=== PATIENT | female | born 2005 ===

== ENCOUNTER 2024-07-16 18:10 | Inpatient (IN) ==
[2024-07-16] MEDS ORDERED: CALCIUM CARBONATE 500 MG CHEWABLE TAB PO PRN (19:02)
[2024-07-16] MEDS ORDERED: ACETAMINOPHEN 325 MG TAB PO PRN (19:02)
[2024-07-16 19:53] LABS: Basophils # (auto) 0.02 K/uL (0.00-0.20); Basophils % (auto) 0.2 %; Eosinophils # (auto) 0.06 K/uL (0.00-0.50); Eosinophils % (auto) 0.7 %; Hematocrit (blood only) 33.2 % (37.0-47.0); Immature Granulocytes # (auto) 0.03 K/uL (0.01-0.20); Immature Granulocytes % (auto) 0.4 %; Lymphocytes # (auto) 1.59 K/uL (1.20-3.40); Lymphocytes % (auto) 18.7 %; Mean Corpuscular Hemoglobin 27.4 pg (25.0-34.0); Mean Corpuscular Hgb Conc 33.1 g/dL (32.0-36.0); Mean Corpuscular Volume 82.6 fL (80.0-100.0); Mean Platelet Volume 12.1 fL (9.4-12.4); Monocytes # (auto) 0.69 K/uL (0.11-0.59); Monocytes % (auto) 8.1 %; Neutrophils # (auto) 6.12 K/uL (1.40-6.50); Neutrophils % (auto) 71.9 %; Platelet Count 223 K/uL (130-400); RDW Coefficient of Variation 13.5 % (11.5-14.5); RDW Standard Deviation 40.5 fL (36.4-46.3); Red Blood Count 4.02 M/uL (4.20-5.40); White Blood Count 8.51 K/ul (4.8-10.8)
[2024-07-16 19:59] LABS: Alanine Aminotransferase 33 U/L (7-52); Albumin Level 3.2 gm/dl (3.4-5.0); Alkaline Phosphatase 198 U/L (34-104); Anion Gap 10 (3-11); Aspartate Aminotransferase 29 U/L (13-39); Bilirubin,Total 0.4 mg/dl (0.2-1.0); Blood Urea Nitrogen 6 mg/dl (6-23); Calcium 8.6 mg/dl (8.6-10.3); Carbon Dioxide 19 mmol/L (21-32); Chloride 106 mmol/L (98-107); Creatinine Clr Calc Pharmacy 235.8 ml/min; Est GFR (African American) > 150.0 ml/min; Est GFR (Non-African American) 139.3 ml/min; Globulin 3.3 gm/dl (2.5-4.0); Glucose 71 mg/dl (70-99(Fasting)); Potassium 3.7 mmol/L (3.5-5.1); Sodium 135 mmol/L (136-145); Total Protein 6.5 gm/dl (6.0-8.3)
[2024-07-16 20:00] LABS: Appearance Urine Cloudy (Clear); Bacteria Urine Automated 4+ (None Seen); Bilirubin Urine Negative (Negative); Blood Urine Negative (Negative); Color Urine Dark Yellow; Glucose Urine UA Negative (Negative); Ketones Urine Trace (Negative); Leukocyte Esterase Urine 1+ (Negative); Mucus Urine Present (None Prsent); Nitrite Urine Negative (Negative); Protein Urine Trace (Negative); RBC Urine Automated 0-2 /hpf (0-2); Specific Gravity Urine 1.028 (1.000-1.030); Urobilinogen Urine Positive (Negative); WBC Urine Automated 21-50 /hpf (0-5)
[2024-07-16 20:12] LABS: Creatinine Urine Random 200.7 mg/dl; Protein Creatinine Ratio Urine 0.1 (0-0.2); Total Protein Urine Random 28.9 mg/dl (0-11.9)
--- NOTE | 2024-07-16 21:08 | History & Physical Report ---
Date of Service July 16, 2024 Assessment & Plan (1) Gestational [-induced] hypertension without significant pr oteinuria, complicating childbirth: Plan: 19 yo at 38.2 wks with Gestational HT, HALEY, normal labs Elevated BP, no severe range, afebrile, FHR reassuring Breech presentation, was scheduled for primary Csection at 39 weeks Plan to admit, monitor, Primary Csection tonight All questions were answered. (2) Headache in : (3) Mild anemia: (4) Hx of syncope: (5) Anxiety and depression: History of Present Illness Primary Care Provider: NO PCP Patient is a 19 yo at 38.2 wks who has been feeling HALEY and starts in her vision, on and off since yesterday She was in [employer] yesterday and took her BP there it was over 150/90, not sure exactly She went to work ( [facility] office ) where nurses took her BP and 148/93, trace protein in urine She had HALEY at noon and then resolve, now she has another one, 4-5/10, on right jain. She does not need pain meds No N&V/ epig or RUQ pain No ctxs/ LOF/VB +FM's Allergies Allergy/AdvReac Type Severity Reaction Status Date / Time No Known Allergies Allergy Verified 07/11/24 12:11 Home Medications Medication Instructions Recorded Confirmed Type 1 tab PO DAILY 07/11/24 07/16/24 History buspirone 10 mg tablet 10 mg PO BID 07/11/24 07/16/24 History ondansetron HCl 4 mg tablet 4 mg PO Q6H PRN n/v 07/11/24 07/11/24 History sertraline 100 mg tablet (Zoloft) 150 mg PO QAM 07/11/24 07/16/24 History Patient History Medical History Mild anemia Hx of syncope Last episode 2021 (during lab draw) Anxiety and depression Surgical History No history of previous surgery Family History Other No family history of adverse response to anesthesia Social History (Updated 07/16/24 @ 18:35 by Desiree Anaya RN) Smoking Status: Never smoker Second Hand Exposure: No; Do You Dip or Chew Tobacco: No; Hx Alcohol Use: No Hx Substance Use: No Preferred Language: Hong Konger Communication Ability: Effective Orthopedic Assistant Required: No Beliefs That Will Affect Care: None marital status: marital status details: Reese Velasco Current Living Situation: Spouse current occupational status: employed 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 Other Information That Helps Us Care for You: No Feels Safe at Home: Yes Safety Concerns: Feels Safe At This Time Diet: regular Assistive Devices: None Review of Systems as per Subjective / HPI Physical Exam Constitutional: WD/WN, vitals as above well developed, well nourished, + obese and comfortable Gastrointestinal (Abdomen): normal bowel sounds, soft, nontender, no hepatosplenomegaly Musculoskeletal: Extremities: strength 5/5 throughout 2+/2+ pitting edema, DTR 2+/2+, no clonu s Bed side US: breech, FHR 140's, placenta anterior Results & Data Vital Signs (Past 12 Hours) Vital Signs Temp Pulse Resp BP 07/16/24 20:45 90 07/16/24 20:45 141/94 H 07/16/24 20:31 86 07/16/24 20:31 139/93 07/16/24 20:16 98 H 07/16/24 20:16 137/98 07/16/24 20:00 84 141/96 H 07/16/24 19:45 88 140/97 07/16/24 19:15 36.6 C 105 H 18 134/91 07/16/24 19:00 93 H 139/93 07/16/24 18:45 81 140/90 07/16/24 18:36 36.9 C 20 07/16/24 18:27 88 140/100 Laboratory Results Lab Results 07/16/24 07/16/24 Range/Units 19:17 Unknown WBC 8.51 (4.8-10.8) K/ul RBC 4.02 L (4.20-5.40) M/uL Hgb 11.0 L (12.0-16.0) g/dl Hct 33.2 L (37.0-47.0) % MCV 82.6 (80.0-100.0) fL MCH 27.4 (25.0-34.0) pg MCHC 33.1 (32.0-36.0) g/dL RDW Std Deviation 40.5 (36.4-46.3) fL RDW Coeff of Naif 13.5 (11.5-14.5) % Plt Count 223 (130-400) K/uL MPV 12.1 (9.4-12.4) fL Immature Gran % (Auto) 0.4 % Neut % (Auto) 71.9 % Lymph % (Auto) 18.7 % Morehouse % (Auto) 8.1 % Eos % (Auto) 0.7 % Baso % (Auto) 0.2 % Neut # (Auto) 6.12 (1.40-6.50) K/uL Lymph # (Auto) 1.59 (1.20-3.40) K/uL Morehouse # (Auto) 0.69 H (0.11-0.59) K/uL Eos # (Auto) 0.06 (0.00-0.50) K/uL Baso # (Auto) 0.02 (0.00-0.20) K/uL Immature Gran # (Auto) 0.03 (0.01-0.20) K/uL Sodium 135 L (136-145) mmol/L Potassium 3.7 (3.5-5.1) mmol/L Chloride 106 (98-107) mmol/L Carbon Dioxide 19 L (21-32) mmol/L Anion Gap 10 (3-11) BUN 6 (6-23) mg/dl Creatinine 0.50 L (0.6-1.2) mg/dl Est Cr Clr Drug Dosing 235.8 ml/min Est GFR ( Amer) > 150.0 ml/min Est GFR (Non-Af Amer) 139.3 ml/min BUN/Creatinine Ratio 12.0 (10-20) Glucose 71 (70-99(Fasting)) mg/dl Calcium 8.6 (8.6-10.3) mg/dl Total Bilirubin 0.4 (0.2-1.0) mg/dl AST 29 (13-39) U/L ALT 33 (7-52) U/L Alkaline Phosphatase 198 H (34-104) U/L Total Protein 6.5 (6.0-8.3) gm/dl Albumin 3.2 L (3.4-5.0) gm/dl Globulin 3.3 (2.5-4.0) gm/dl Albumin/Globulin Ratio 1.0 (0.9-2) Urine Color Dark Yellow Urine Appearance Cloudy A (Clear) Urine pH 6.0 (4.5-7.5) Ur Specific Cameron 1.028 (1.000-1.030) Urine Protein Trace H (Negative) Urine Glucose (UA) Negative (Negative) Urine Ketones Trace H (Negative) Urine Blood Negative (Negative) Urine Nitrite Negative (Negative) Urine Bilirubin Negative (Negative) Urine Urobilinogen Positive H (Negative) Ur Leukocyte Esterase 1+ H (Negative) Urine WBC (Auto) 21-50 H (0-5) /hpf Urine RBC (Auto) 0-2 (0-2) /hpf U Hyaline Cast (Auto) 3-5 H (0-2) /lpf U Epithel Cells (Auto) 6-10 H (0-2) /hpf Urine Bacteria (Auto) 4+ H (None Seen) Urine Mucus Present A (None Prsent) Ur Random Creatinine 200.7 mg/dl U Random Total Protein 28.9 H (0-11.9) mg/dl Protein/Creatinin Ratio 0.1 (0-0.2) (2) Headache in Trimester: third trimester Qualified Code(s): O26.893 - Other specified related conditions, third trimester; R51.9 - Headache, unspecified
[2024-07-16] MEDS ORDERED: LACTATED RINGER'S 1,000 ML IV PRN (21:21)
[2024-07-16] MEDS ORDERED: LIDOCAINE 1% LOCAL 20 ML VIAL INFIL PRN (21:21)
[2024-07-16] MEDS ORDERED: OXYTOCIN 30 UNITS/NSS 30 UNITS/500 ML BAG IV PRN (21:21)
[2024-07-16] MEDS ORDERED: ceFAZolin 2000MG 2,000 MG/15 ML SYR IV STA (21:26)
[2024-07-16] MEDS: LACTATED RINGER'S 1,000 ML IV SCH ×2 (21:45→22:38)
[2024-07-16] MEDS: ACETAMINOPHEN 500 MG TAB PO SCH (21:53)
[2024-07-16] MEDS: CITRIC ACID/SODIUM CITRATE 15 ML UDC PO SCH (22:04)
[2024-07-16] MEDS ORDERED: fentaNYL citrate PF 100 MCG/2 ML VIAL ONE (22:20)
[2024-07-16] MEDS ORDERED: OXYTOCIN 10 UNITS/ML VIAL ONE ×2 (22:20→23:17)
[2024-07-16] MEDS ORDERED: MoRPHine SULFATE PF 1 MG/ML 10 ML AMP/VIAL ONE (22:20)
[2024-07-16] MEDS ORDERED: PHENYLEPHRINE HCL 25 MG/250 ML NSS IV ONE (22:20)
[2024-07-16] MEDS: ceFAZolin 3000MG 3,000 MG/72.5 ML BAG IV SCH (22:22)
[2024-07-16] MEDS ORDERED: ONDANSETRON INJ 2 MG/ML 2 ML VIAL IV PRN (22:37)
[2024-07-16] MEDS ORDERED: NALBUPHINE HCL INJ 10 MG/ML AMP IV PRN (22:37)
[2024-07-16] MEDS ORDERED: KETOROLAC 30 MG/ML VIAL IV PRN (22:37)
[2024-07-16] MEDS ORDERED: MoRPHine SULFATE PF 1 MG/ML 10 ML AMP/VIAL INT SPINAL ONE (22:37)
[2024-07-16] MEDS ORDERED: LACTATED RINGER'S 500 ML IV PRN (22:37)
[2024-07-16] MEDS ORDERED: NALOXONE HCL 0.08 MG in SYRINGE 1.8 ML IV PRN (22:37)
[2024-07-16] MEDS ORDERED: MoRPHine SULFATE 2 MG/ML CARP IV PRN (22:37)
[2024-07-16] MEDS ORDERED: NALOXONE HCL 1 MG in SODIUM CHLORIDE 0.9% 1,000 ML IV PRN (22:37)
[2024-07-16] MEDS ORDERED: HYDROmorphone INJ 0.5 MG/0.5 ML SYR IV PRN (22:37)
[2024-07-16] MEDS ORDERED: diphenhydrAMINE 50 MG/ML VIAL IV PRN (22:37)
[2024-07-16] MEDS ORDERED: ePHEDrine sulfate 50 MG/ML AMP IV PRN (22:37)
[2024-07-16] MEDS ORDERED: NALOXONE HCL 0.4 MG/1 ML VIAL/CARP IV PRN (22:37)
--- NOTE | 2024-07-16 22:38 | Anesthesiology Consultation ---
Date of Service July 16, 2024 Assessment & Plan ASA ASA3 Proposed Anesthesia Anesthesia Type: Spinal Risk / Benefits Reviewed With: PT / POA / Parent / Guardian, Accepts Plan and Informed Consent Obtained History Surgery Operation Date: 07/16/24 22:30 Proposed Procedures p Section in LD - Renetta Constantino MD Height/Weight Height: 5 ft 7 in Weight: 115.666 kg Allergies Allergy/AdvReac Type Severity Reaction Status Date / Time No Known Allergies Allergy Verified 07/11/24 12:11 Medications Home Medications Medication Instructions Recorded Confirmed Last Taken 1 tab PO DAILY 07/11/24 07/16/24 07/14/24 buspirone 10 mg tablet 10 mg PO BID 07/11/24 07/16/24 07/16/24 ondansetron HCl 4 mg tablet 4 mg PO Q6H PRN n/v 07/11/24 07/11/24 Unknown sertraline 100 mg tablet (Zoloft) 150 mg PO QAM 07/11/24 07/16/24 07/16/24 NPO Date Last Intake of Fluids: 07/16/24 Time Last Intake of Fluids: 19:00 Date Last Intake of Solids: 07/16/24 Time Last Intake of Solids: 14:00 Past Medical History Medical History Mild anemia Hx of syncope Last episode 2021 (during lab draw) Anxiety and depression Exercise / Class Metabolic Activity II 4-5 Yardwork/Stairs/Walk up hill Past Family History Family History Other No family history of adverse response to anesthesia Past Surgical History Surgical History No history of previous surgery Past Anesthesia History No Hx of Anesthesia Complications and No Family Hx of Anesthesia Complications History of PONV No Hx of PONV and No Hx of Motion Sickness Social History Smoking Status: Never smoker Do You Dip or Chew Tobacco: No Hx Alcohol Use: No Hx Substance Use: No substance use type: does not use Review of Systems denies fever/cough/ colds/ chest pain/ SOB/ NAYELI denies NAYELI Physical Exam Vital Signs Last Vital Signs Temp 36.8 C 07/16/24 22:06 Pulse 96 H 07/16/24 22:35 Resp 18 07/16/24 22:06 BP 164/102 H 07/16/24 22:35 ENMT Mouth: no TMJ abnormality and no dentition abnormality Thyromental Distance: > or= 3.5 Finger Breadths Mallampati Class: II Neck neck extension not limited Respiratory normal respiratory effort; no respiratory distress Auscultation: lungs clear to auscultation bilaterally Cardiovascular Rate/Rhythm: regular rate and regular rhythm Neurologic moves all extremities Psychiatric Orientation: alert and oriented x 3 Testing Laboratory Results 07/16/24 19:17 07/16/24 19:17 Urine Color Dark Yellow 07/16/24 Unknown Urine Appearance Cloudy (Clear) A 07/16/24 Unknown Urine pH 6.0 (4.5-7.5) 07/16/24 Unknown Ur Specific [place] 1.028 (1.000-1.030) 07/16/24 Unknown Urine Protein Trace (Negative) H 07/16/24 Unknown Urine Glucose (UA) Negative (Negative) 07/16/24 Unknown Urine Ketones Trace (Negative) H 07/16/24 Unknown Urine Nitrite Negative (Negative) 07/16/24 Unknown Ur Leukocyte Esterase 1+ (Negative) H 07/16/24 Unknown Urine WBC (Auto) 21-50 /hpf (0-5) H 07/16/24 Unknown Urine RBC (Auto) 0-2 /hpf (0-2) 07/16/24 Unknown U Hyaline Cast (Auto) 3-5 /lpf (0-2) H 07/16/24 Unknown U Epithel Cells (Auto) 6-10 /hpf (0-2) H 07/16/24 Unknown Urine Bacteria (Auto) 4+ (None Seen) H 07/16/24 Unknown Blood Type O Positive 07/16/24 19:17 Antibody Screen NEGATIVE 07/16/24 19:17
[2024-07-16] MEDS ORDERED: SODIUM CHLORIDE 0.9% 1,000 ML IV SCH (22:45)
[2024-07-16] MEDS ORDERED: NO NARCOTICS OR SEDATIVES SCH (22:45)
[2024-07-16] MEDS ORDERED: DC INTRASPINAL MORPHINE SCH (22:45)
[2024-07-16] MEDS ORDERED: ONDANSETRON INJ 2 MG/ML 2 ML VIAL ONE (23:22)
[2024-07-16] MEDS ORDERED: KETOROLAC 30 MG/ML VIAL ONE (23:22)
[2024-07-17] MEDS ORDERED: BENZOCAINE 20% SPRY 85 APPLN/85 GM CAN EXT PRN (00:04)
[2024-07-17] MEDS ORDERED: HYDROCORTISONE ACETATE 25 MG SUPP PR PRN (00:04)
[2024-07-17] MEDS ORDERED: diphenhydrAMINE 50 MG/ML VIAL IV PRN (00:04)
[2024-07-17] MEDS ORDERED: MAGNESIUM HYDROXIDE SUSP 30 ML UDC PO PRN (00:04)
[2024-07-17] MEDS ORDERED: DIPHTHER/TETAN/PERTUS Vaccine (Tdap, Adol/Adult) 0.5mL IM ONE (00:04)
[2024-07-17] MEDS ORDERED: SENNA 8.6 MG TAB PO PRN (00:04)
[2024-07-17] MEDS ORDERED: CALCIUM CARBONATE 500 MG CHEWABLE TAB PO PRN (00:04)
--- NOTE | 2024-07-17 00:10 | Operative Report ---
Post Operative Report Pre & Post Diagnosis Operation Date: 07/16/24 22:30 Pre-Op Diagnosis: Breech presentation with gestational HTN at 38 weeks Post-Op Diagnosis: same as pre-op I identified the patient and participated in the time-out.: Yes Procedure Operation Date: 07/16/24 22:30 <No data on this case meets the specified criteria> Surgeon Renetta Constantino MD Home Advisor Dr Tapia Quantitative Blood Loss (QBL) 1205ml Findings Consistent with Post-Op Diagnosis Baby was a viable female delivered in footling breech presentation at 2314 PM, Apgars 8/8, weight 322 5 g, Maternal findings, normal uterus, fallopian tubes and ovaries. Specimens Placenta and cord Drains Keller catheter drained 100 mL of clear urine Anesthesia Type Spinal Complications none Disposition Accompanied Patient To Recovery: Yes Indications patient is a 19-year-old G1, P0 at 38 weeks and 3 days of gestation who presented to labor and delivery with increased blood pressure, headaches for the last 2 days. Upon observation her blood pressures remains persistently high with no severe ranges and her blood work and urine PC ratio were within normal limits. The fetus was found to be in footling breech presentation and she was already scheduled for primary at 39 weeks. Due to the findings above decision was made to deliver the baby tonight. Patient understood the risks and benefits and signed informed consent. Description of Procedure Patient was taken to operating room where a spinal anesthesia was given without difficulty. She was placed in dorsal supine position with a leftward tilt. She was prepared and draped in usual sterile fashion. A financial skin incision was made and carried through to the underlying layer of fascia with the Bovie. Fascia was incised in the midline and incision was extended laterally with the help of Villalpando scissors. Then the upper aspect of the fascial incision was gra sped with 2 Madi clamps elevated the underlying rectus muscles were dissected off sharply with Villalpando scissors. Same thing was done on the lower incision. Then the muscles were in the midline, peritoneum was identified grasped with 2 pickups and entered sharply with Metzenbaum scissors. Peritoneal incision was extended superior and inferiorly with good visualization of the bladder. The bladder blade was inserted. Vesicouterine peritoneum was identified, grasped with pickups and entered sharply with Metzenbaum scissors, bladder flap was created digitally and bladder blade was reinserted. Uterus was incised in transverse fashion, incision was extended laterally , membranes were ruptured and clear fluid was obtained. Baby's legs and then buttocks were delivered without difficulty, followed by trunk and arms in flexion position and then head without difficulty. Mouth and nose were suctioned, she was dried on the field. She was vigorously crying and moving. The cord was clamped times and cut at 1 minute delay and then the was handed off to the pediatric team. Then the placenta was delivered manually as intact and complete. Uterus was externalized and cleared of all clots and debris's. Uterine incision was repaired with 0 Vicryl in a running locked fashion, second umbricating layer was placed with the same suture in running locked fashion. Excellent hemostasis achieved. Cul-de-sac and the pelvis was irrigated with warm normal saline and suctioned. Incision was checked of anesthetic again. Uterus was returned to the abdomen, parietal peritoneum was reapproximated with 3-0 Vicryl in a running fashion and the muscles were reapproximated in the same suture in a running fashion. All of the fascia and rectus muscles were hemostatic. Rectus fascia was r eapproximated with #1 Vicryl starting from both columns meeting in the midline. Subcuticular fat tissue was brought together with 2-0 Vicryl in a running fashion, skin was closed with 4-0 Monocryl in a subcuticular cuticular fashion. The mom and baby tolerated procedure well. Sponge needle instrument count was correct x3. No complications happened, I was present during whole procedure. My campaign assistant was needed for retraction, hemostasis and aid during delivery of infant I attest to the content of the Intraoperative Record and any orders documented therein. Any exceptions are noted below.
[2024-07-17] MEDS ORDERED: LACTATED RINGER'S 1,000 ML IV SCH (00:15)
--- NOTE | 2024-07-17 00:23 | Anesthesiology Progress Note ---
Date of Service July 17, 2024 Anesthesia Post Procedure Vital Signs Vital Signs: Temp Pulse Resp BP Pulse Ox 07/17/24 00:20 82 99 07/17/24 00:15 84 100 07/17/24 00:10 94 07/17/24 00:10 72 07/17/24 00:10 68 99 07/17/24 00:05 79 99 07/17/24 00:02 85 123/75 07/16/24 22:35 96 H 07/16/24 22:35 164/102 H 07/16/24 22:06 18 07/16/24 22:06 36.8 C 18 07/16/24 22:02 91 H 07/16/24 22:02 143/96 H 07/16/24 21:53 88 07/16/24 21:53 152/93 H 07/16/24 21:45 97 H 07/16/24 21:45 163/100 H 07/16/24 21:32 102 H 07/16/24 21:32 153/104 H 07/16/24 21:17 82 07/16/24 21:17 141/97 H 07/16/24 20:45 90 07/16/24 20:45 141/94 H 07/16/24 20:31 86 07/16/24 20:31 139/93 07/16/24 20:16 98 H 07/16/24 20:16 137/98 07/16/24 20:00 84 141/96 H 07/16/24 19:45 88 140/97 07/16/24 19:15 36.6 C 105 H 18 134/91 07/16/24 19:00 93 H 139/93 07/16/24 18:45 81 140/90 07/16/24 18:36 36.9 C 20 07/16/24 18:27 88 140/100 Transfer of Care Handoff Completed per policy Notes Mental Status: alert / awake / arousable and participated in evaluation Patient Amnestic to Procedure: Yes Nausea / Vomiting: adequately controlled Pain: adequately controlled Airway Patency, RR, SpO2: stable & adequate BP & HR: stable & adequate Hydration State: stable & adequate Neuraxial Anesthesia: was administered and sensory block is resolving Anesthetic Complications: no major complications apparent and Pt Satisfied with anesthetic care
[2024-07-17] MEDS: OXYTOCIN 20 UNITS/LR 1,002 ML IV SCH (00:43)
[2024-07-17] MEDS: OXYTOCIN 10 UNITS/ML 10ML VIAL IM ONE (01:06)
[2024-07-17] MEDS: SURGICEL ABSORB HEMOSTAT 2IN X 14IN TOP ONE (01:07)
--- OUTSIDE RECORDS SUMMARY | 2024-07-17 04:17 | External Medical Summary | Summary of Care ---
Author Name Unknown Organization [facility] Address [address] [place] [address] Phone [phone] Care Team Providers Care Gallery Manager Name Role Phone Grecia Morrissey Primary Care Provider +1- [phone] Reason for Visit * Reason Comments Return Visit Encounter Details Date Type Department Care Team (Late st Contact Info) Description 07/09/2024 2:45 PM EDT Office Visit Gynecology/Obstetric s Maria Ines Hinojosa [address] [facility] [place] [address] Eduardo Raman MD [address] [facility] [place] [address] Merari Hinojosa Stress Tests Jan [address] [place] [address] Supervision of normal first , antepartum*; Class II obesity; Anxiety during ; Preop testing Allergies No known active allergiesdocumented as of this encounter (statuses as of 07/09/2024) Medications Medication Sig Dispensed Refills Start Date End Date Status 28-0.8 MG Oral Tablet Take by mouth. Active Ondansetron HCl 4 MG Oral TabletIndications:Na usea and vomiting during Take 1 Tablet by mouth every 8 hours as needed for Nausea. 30 Tablet 3 01/23/2024 Active Iron 325 (65 Fe) MG Oral Tablet Take by mouth. Active Sertraline HCl 100 MG Oral Tablet (Zoloft)Indications: GENEVA (generalized anxiety disorder) Take 1.5 Tablets by mouth in the morning. 145 Tablet 3 05/27/2024 Active Sertraline HCl 100 MG Oral Tablet (Zoloft) Take 1.5 Tablets by mouth in the morning. 14 Tablet 05/27/2024 Active busPIRone HCl 10 MG Oral Tablet (Buspar)Indications: GENEVA (generalized anxiety disorder) Take 1 Tablet by mouth in the morning and 1 Tablet before bedtime. 180 Tablet 1 06/26/2024 Active documented as of this encounter (statuses as of 07/09/2024) Active Problems Problem Noted Date Diagnosed Date Anxiety during 01/23/2024 Supervision of normal first , antepartu m 12/26/2023 Class II obesity 12/26/2023 Overview: Early glucola WNL Growth u/s every 4 weeks after 20wk NST weekly starting at 37w Insulin resistance 07/18/2022 Class 2 obesity with body ma ss index (BMI) of 35 to 39.9 without comorbidity 07/18/2022 Hyperlipidemia with target LDL less than 130 Estimated Date of Delivery Comme nts Yes 07/28/2024 Based on last me nstrual period of 10/22/2023 (Approximate) documented as of this encounter (statuses as of 07/09/2024) Resolved Problems Problem Noted Date Diagnosed Date Resolved Date HEMANGIOMA SKIN 2004 07/18/2022 Routine child health exam 2004 documented as of this encounter (statuses as of 07/09/2024) Immunizations Name Administration Dates Next Due COVID-19 mRNA, LNP-s, No Pre serve, 2-Dose Series (Moderna) 11/26/2021,06/13/2021,05/23/2021 DTaP Dipth/Tet/Acell Pertussis (Infanrix), Peds 11/17/2008,12/19/2005 H1N1 2009 Influenza, Intranasal 09/23/2009 HPV Vaccine, 9-Valent 06/21/2020,05/13/2020 Hepatitis A, Ped/Adol., 18 y ear and below, 2-Dose 05/13/2020 IPV - Polio Virus Vaccine (Inact) 11/17/2008, Influenza Vaccine, Live, Int ranasal, Trivalent (Flumist) 09/02/2010 MMR - Measles/Mumps/Rubella Vaccine 11/17/2008 Meningococcal Conjugate Vacc ine (Menactra/Menveo) 01/15/2017 Meningococcal MCV4O Conjugat e Vaccine (Menveo) 06/21/2020 Seasonal Influenza Virus Vac cine, Unspecified Formulation 09/08/2022 Seasonal Influenza, PF, 6 M & above, IM , (FluLaval or Fluzone) 08/16/2023,08/16/2023,09/08/2022,09/19 Seasonal Influenza, Trivalen t, (IIV3), PF, (Fluzone) 09/20/2006 Seasonal Influenza, Trivalen t, (IIV3), with Preserv, (Fluzone) 08/30/2009 TDAP (age 10 and older)(Boostrix) 01/15/2017 TDAP, Age 7 and older, IM (Adacel) 05/07/2024 Varicella Vaccine (Chicken Pox) 11/17/2008 documented as of this encounter Social History Tobacco Use Types Packs/Day Years Used Date Smoking Tobacco: Never Smokeless Tobacco: Never Alcohol Use Standard Drinks/Week Comments No 0 (1 standard drink = 0.6 oz pur e alcohol) PHQ-2 Answer Date Recorded PHQ Adult Total Score 1 10/01/2023 Hunger Vital Sign Answer Date Recorded Within the past 12 months, y ou worried that your food would run out before you got the money to buy more. Never true 02/25/20 24 Within the past 12 months, t he food you bought just didn't last and you didn't have money to get more. Never true 02/25/2024 [place] Depression Scale Answer Date Recorded [place] Depression Scale Total 5 06/30/2024 The thought of harming myself has occurred to me . Never 06/30/2024 Childcare Answer Date Recorded Do you feel overwhelmed with taking care of a child, family member or friend? No 02/25/2024 Does your family need help f inding childcare? (Household - for ages 0-17 years) Not on file 02/25/2024 Clothing Answer Date Recorded Have you been unable to get clothing when it was really needed? No 02/25/2024 Is your family able to get c lothes or diapers when needed? (Household - for ages 0-17 years) Not on file 02/25/2024 Personal Safety Answer Date Recorded Do you feel unsafe or have concerns for your saf ety? No 02/25/2024 Do you have concerns for you r family's safety? (Household - for ages 0-17 years) Not on file 02/25/2024 Utilities Answer Date Recorded Do you have trouble paying y our heating, water, or electric bill? No 02/25/2024 Is your family able to pay t he heat, water, or electric bill? (Household - for ages 0-17 years) Not on file 02/25/2024 Does your family have access to good internet? (Household - for ages 0-17 years) Not on file 02/25/2024 Employment Status Answer Date Recorded Are you unemployed or without regular income? No 02/25/2024 Does the household have a [facility] source of income? (Household - for ages 0-17 years) Not on file 02/25/2024 Social Connections Answer Date Recorded How often do you feel lonely or isolated from th ose around you? Rarely 02/25/2024 Financial Resource Strain Answer Date R ecorded Do you have any trouble payi ng for your medications, or do you think you might in the future? No 02/25/2024 Does your family have troubl e paying for medicine? (Household - for ages 0-17 years) Not on file 02/25/2024 Transportation Needs Answer Date Record ed READ ONLY Do you have troubl e getting a ride to medical visits or work? Never True 02/25/2024 Does your family have a hard time getting a ride to doctors visits? (Household - for ages 0-17 years) Not on file 02/25/2024 Has lack of transportation k ept you from medical appointments, meetings, work, or from getting things needed for daily living? Check all that apply. (Adult - for ages 18 years and over) Not on file 02/25/2024 Do you (or your family) have trouble finding or paying for a ride (transportation)? (Household - for ages 0-17 years) Not on file 02/25/2024 Housing Stability Answer Date Recorded Do you currently live in a s helter or have no steady place to sleep at night? No 02/25/2024 READ ONLY Do you think you a re at risk of becoming homeless? No 02/25/2024 Does your family worry about paying for your home or becoming homeless? (Household - for ages 0-17 years) Not on file 0 02/25/2024 Are you homeless or worried that you might be in the future? (Adult - for ages 18 years and over) Not on file Are you (or your family) tia eless or worried that you might be in the future? (Household - for ages 0-17 years) Not on file Food Insecurity Answer Date Recorded Do you need food for this week? No 02/25/2024 Are you able to get enough f ood for your family? (Household - for ages 0-17 years) Not on file 02/25/2024 Does your family need food t his week? (Household - for ages 0-17 years) Not on file 02/25/2024 Do you always have enough fo od for your family? (Household - for ages 0-17 years) Not on file 02/25/2024 Estimated Date of Delivery Comme nts Yes 07/28/2024 Based on last me nstrual period of 10/22/2023 (Approximate) Sex and Gender Information Value Date Recorded Sex Assigned at Female 12/31/2022 10:05 PM EST Gender Identity Female 12/31/2022 10:05 PM EST Sexual Orientation Straight 12/31/2022 10 :05 PM EST Job Start Date Occupation Industry Not on file Not on file Not on file documented as of this encounter Last Filed Vital Signs Vital Sign Reading Time Taken Comments Blood Pressure 120/68 07/09/2024 2:46 PM EDT Pulse - - Temperature - - Respiratory Rate - - Oxygen Saturation - - Inhaled Oxygen Concentration - - Weight 117.5 kg (259 lb) 07/09/2024 2:46 PM EDT Height 170.2 cm (5' 7") 07/09/2024 2:46 PM EDT Body Mass Index 40.57 07/09/2024 2:46 PM EDT documented in this encounter Progress Notes * Eduardo Raman MD - 07/09/2024 3:14 PM EDT ASSESSMENT assessment with Non-stress Test completed on 07/09/2024 at 37weeks gestation for indication of obesity heart baseline: 140 bpm Variability: Minimal Decelerations: absent Accelerations: present Contractions: None NST start time: 14;42 NST stop time: 15;00 NST strip reviewed, interpreted, and approved by OB provider, amauri. NST strip stored in clinic storage file documented in this encounter H&P Notes * Eduardo Raman MD - 07/09/2024 3:24 PM EDT [facility] [address] [address] Appt line [phone] Dacia Velasco is a 19 year old year old year old at 37w2d Patient is . EstimatedDate of Delivery: 07/28/24 Breech presentation Patient is here for preop OB History Para Term AB Living 1 0 0 0 0 0 SAB IAB Ectopic Multiple Live Births 0 0 0 0 0 # Outcome Date GA Lbr Robert/2nd Weight Sex Type Anes PTL Lv 1 Current Date Labor Sex Delivery Anesth Del Comments GA Length Weight Type Site Fruit Tester History: Menstrual Index: // days. Denies h/o STDs and abnormal Paps. Her past medical/surgical histories and current medications are recorded in the electronic record. Past Surgical History: Procedure Laterality Date NONE Family History Problem Relation Name Age of Onset Thyroid Disorder Mother Hypertension Mother No Known Problems Father Diabetes Grandfather (Maternal) Heart disease Grandmother (Paternal) History Social History Socioeconomic History Marital status: Spouse name: Not on file Number of children: Not on file Years of education: Not on file Highest education level: Not on file Occupational History Not on file Tobacco Use Smoking status: Never Smokeless tobacco: Never Vaping Use Vaping status: Former Substance and Sexual Activity Alcohol use: No Drug use: No Sexual activity: Yes Partners: Male Other Topics Concern Not on file Social History Narrative Lives at home with family. Social Determinants of Health Financial Resource Strain: Low Risk (02/25/2024) Financial Resource Strain Do you have any trouble paying for your medications, or do you think you might in the future? (Adult - for ages 18 years and over): No Does your family have trouble paying for medicine? (Household - for ages 0-17 years): Not on file Food Insecurity: No Food Insecurity (02/25/2024) Food Insecurity Do you need food for this week? (Adult - for ages 18 years and over): No Are you able to get enough food for your family? (Household - for ages 0-17 years): Not on file Does your family need food this week? (Household - for ages 0-17 years): Not on file Do you always have enough food for your family? (Household - for ages 0-17 years): Not on file Transportation Needs: No Transportation Needs (02/25/2024) Transportation Needs Do you have trouble getting a ride to medical visits or work? (Adult - for ages 18 years and over):Never True Does your family have a hard time getting a ride to doctors visits? (Household - for ages 0-17 years): Not on file Has lack of transportation kept you from medical appointments, meetings, work, or from getting things needed for daily living? Check all that apply. (Adult - for ages 18 years and over): Not on file Do you (or your family) have trouble finding or paying for a ride (transportation)? (Household - for ages 0-17 years): Not on file Social Connections: Socially Integrated (02/25/2024) Social Connections How often do you feel lonely or isolated from those around you? (Adult - for ages 18 years and over): Rarely Housing Stability: Low Risk (02/25/2024) Housing Stability Do you currently live in a skilled nursing or have no steady place to sleep at night? (Adult - for ages 18 years and over): No Do you think you are at risk of becoming homeless? (Adult - for ages 18 years and over): No Does your family worry about paying for your home or becoming homeless? (Household - for ages 0-17 years): Not on file Are you homeless or worried that you might be in the future? (Adult - for ages 18 years and over): Not on file Are you (or your family) homeless or worried that you might be in the future? (Household - for ages0-17 years): Not on file @[facility]@ Physical Exam: Ht 1.702 m (5' 7") | Wt 117.5 kg (259 lb) | LMP 10/22/2023 (Approximate) | BMI 40.57 kg/m | BSA 2.36 m CV: S1, S2. Regular rate and Rhythm Lungs: Clear to auscultation bilaterally. Abdomen: Soft with a gravid uterus and no palpable contractions. Fundal Height: 38cms heart rate:CAT 1 NST Extremities: Soft non tender calves bilaterally. A/P: 19 year old year old Breech presentation Sono done today confirms breech presentation Body mass index is 40.57 kg/m. We have discussed the risk alternatives and complications of surgery including more surgery to correct complication,risk of anesthesia,infection,damage to internal organs and . We have also discussed the possibility that pt's present situation may not change. Pt is aware and wishes to proceed to surgery. Consent is signed Scheduled for primary section Eduardo Raman MD 07/09/2024 3:24 PM documented in this encounter Plan of Treatment Upcoming Encounters Date Type Department Care Team (Late st Contact Info) Description 07/14/2024 11:45 AM EDT Office Visit Gynecology/Obstetrics [address] [place] [address] Tita Bassett CRNP [address] [place] [address] 07/31/2024 11:30 AM EDT Office Visit Gynecology/Obstetrics Maria Ines Hinojosa [address] [place] [address] María Disla PA-C [address] [place] [address] Health Maintenance Due Date Last Done Comments HPV (Gardasil) Vaccine (3 - 3-dose series) 11/13/2020 06/21/2020, 05/13/2020 Yearly Wellness Visit 07/18/2023 07/18/2022 , 05/13/2020, 01/15/2017, Additional history exists COVID-19 Vaccine ( season) 2024 11/26/2021, 06/13/2021, 05/23/2021 Influenza Vaccine (FLU shot) (#1) 2024 08/16/2023, 08/16/2023, 09/08/2022, Additional history exists Depression Screening 10/01/2024 10/01/2023 Gonorrhea / Chlamydia Screen 12/26/2024, 07/18/2022, 05/14/2020 DTap/Tdap Vaccines (8 - Td or Tdap) 05/07/2034 05/07/2024, 01/15/2017, 11/17/2008, Additional history exists Hepatitis B Vaccine Completed 09/22/2005, 2004, 2004, Additional history exists MENINGOCOCCAL (MENACTRA/MENVEO) Completed 06/21/2020, 01/15/2017 Pneumococcal Vaccine: Pediatrics (0 to 5 Years) and At-Risk Patients (6 to 64 Years) Aged Out No longer eligible based on patient's age to complete this topic documented as of this encounter Medical Devices Not on filedocumented as of this encounter Visit Diagnoses Diagnosis Supervision of normal first , antepartum- Primary Class II obesity Anxiety during Preop testing Preoperative examination, unspecified documented in this encounter Care Teams Gallery Manager Relationship Specialty Start Date End Date Grecia Morrissey CRNP [address] [place] [address] PCP - General Nurse Practitioner 05/20/24 documented as of this encounter
--- OUTSIDE RECORDS SUMMARY | 2024-07-17 04:17 | External Medical Summary | Summary of Care ---
Author Name Unknown Organization [facility] Address [address] [place] [address] Phone [phone] Care Team Providers Care Baggageman Name Role Phone Grecia Morrissey Primary Care Provider +1- [phone] Reason for Visit * Reason Comments Return Visit Encounter Details Date Type Department Care Team (Late st Contact Info) Description 06/30/2024 2:15 PM EDT Office Visit Gynecology/Obstetric s Maria Ines Hinojosa [address] [place] [address] Tita Bassett CRNP [address] [place] [address] Supervision of normal first , antepartum*; Class II obesity; Anxiety during Allergies No known active allergiesdocumented as of this encounter (statuses as of 06/30/2024) Medications Medication Sig Dispensed Refills Start Date [...] as of this encounter (statuses as of 06/30/2024) Active Problems Problem Noted Date Diagnosed Date [...] as of this encounter (statuses as of 06/30/2024) Resolved Problems Problem Noted Date Diagnosed Date Resolved Date HEMANGIOMA SKIN 2004 07/18/2022 Routine child health exam 2004 documented as of this encounter (statuses as of 06/30/2024) Immunizations Name Administration Dates Next Due COVID-19 mRNA, LNP-s, No Pre serve, 2-Dose Series (Moderna) 11/26/2021,06/13/2021,05/23/2021 DTaP Dipth/Tet/Acell Pertussis (Infanrix), Peds 11/17/2008,12/19/2005,2004,10/18,2004 H1N1 2009 Influenza, Intranasal 09/23/2009 HIB Hep B - HIB Hepatitis B (Comvax) 09/22/2005, 2004,2004 HPV Vaccine, 9-Valent 06/21/2020,05/13/2020 Hepatitis A, Ped/Adol., 18 y ear and below, 2-Dose 05/13/2020 Hepatitis B, 0-19 yrs 2004 IPV - Polio Virus Vaccine (Inact) 2008,12/19/2005,2004,08/17 MMR - Measles/Mumps/Rubella Vaccine 11/17/2008,0 06/21/2005 Meningococcal Conjugate Vacc ine (Menactra/Menveo) 01/15/2017 Meningococcal MCV4O Conjugat e Vaccine (Menveo) 06/21/2020 Pneumococcal Conjugate Vacci ne, 7 Valent 09/22/2005,2004,2004,08/17 Seasonal Influenza Intranasal 09/02/2010 Seasonal Influenza Virus Vac cine, Unspecified Formulation 09/08/2022 Seasonal Influenza, PF, 6 M & above, IM , (FluLaval or Fluzone) 08/16/2023,08/16/2023,09/08/2022,09/19 Seasonal Influenza, Split, I IV3, No Preserve, Inj 09/20/2006,09/22/2005 Seasonal Influenza, Split, I IV3, With Preserve, Inj 08/30/2009 TDAP (age 10 and older)(Boostrix) 01/15/2017 TDAP, Age 7 and older, IM (Adacel) 05/07/2024 Varicella Vaccine (Chicken Pox) 11/17/2008,06/21 documented as of this encounter Social History [...] money to get more. Never true 02/25/2024 [place] Depression Scale Answer Date Recorded [place] Depression Scale Total 0 12/26/2023 The thought of harming myself has occurred to me . Never 12/26/2023 Childcare Answer Date Recorded Do you feel [...] No 02/25/2024 Does the household have a re gular source of income? (Household - for ages [...] Sign Reading Time Taken Comments Blood Pressure 124/72 06/30/2024 2:03 PM EDT Pulse - - Temperature - - Respiratory Rate - - Oxygen Saturation - - Inhaled Oxygen Concentration - - Weight 117 kg (258 lb) 06/30/2024 2:03 PM EDT Height 170.2 cm (5' 7") 06/30/2024 2:03 PM EDT Body Mass Index 40.41 06/30/2024 2:03 PM EDT documented in this encounter Progress Notes * Tita Bassett CRNP - 06/30/2024 2:18 PM EDT 36w No concerns. Baby is active. Denies contractions, bleeding, LOF. NSTs to begin next week. Baby is breech- preop scheduled. KAPIL Swift documented in this encounter Nursing Notes * Carla Montesinos LPN - 06/30/2024 2:04 PM EDT 36w0d GBS today documented in this encounter Plan of Treatment Upcoming Encounters Date Type Department Care Team (Late st Contact Info) Description 07/09/2024 2:45 PM EDT Office Visit Gynecology/Obstetrics Maria Ines Hinojosa [address] [place] [address] Eduardo Raman MD [address] [address] Merari Hinojosa Stress Tests Jan [address] [place] [address] 07/14/2024 11:45 AM EDT Office Visit Gynecology/Obstetrics [address] [place] [address] Tita Bassett CRNP [address] [place] [address] 07/31/2024 11:30 AM EDT Office Visit Gynecology/Obstetrics [address] [place] [address] María Disla PA-C [address] [place] [address] [place] [address] Pending Results Name Type Priority Associated Diagnoses Date /Time GROUP B STREP CULTURE/PCR Lab Routine Supervision of normal first , antepartum 06/30/2024 2:51 PM EDT Scheduled Orders Name Type Priority Associated Diagnoses Orde r Schedule GROUP B STREP CULTURE/PCR Lab Routine Supervision of normal first , antepartum Expected: 06/30/2024, Expires: 06/30/2025 Health Maintenance Due Date Last Done Comments HPV (Gardasil) Vaccine (3 - 3-dose series) 11/13/2020 06/21/2020, 05/13/2020 COVID-19 Vaccine ( season) 2023 11/26/2021, 06/13/2021, 05/23/2021 Yearly Wellness Visit 07/18/2023 07/18/2022 , 05/13/2020, 01/15/2017, Additional history exists Influenza Vaccine (FLU shot) (#1) 2024 08/16/2023, 08/16/2023, 09/08/2022, Additional history exists Depression Screening 10/01/2024 10/01/2023 Gonorrhea / Chlamydia Screen 12/26/2024, 07/18/2022, 05/14/2020 DTaP,Tdap,and Td Vaccines (8 - Td or Tdap) 05/07/2034 [...] antepartum- Primary Class II obesity Anxiety during documented in this encounter Care Teams Baggageman Relationship Specialty Start Date End Date Grecia Morrissey CRNP [address] [place] [address] PCP - General Nurse Practitioner 05/20/24 documented as of this encounter
--- OUTSIDE RECORDS SUMMARY | 2024-07-17 04:17 | External Medical Summary | Summary of Care ---
Author Name Unknown Organization [facility] Address [address] [place] [address] Phone [phone] Care Team Providers Care Manuscript Editor Name Role Phone Grecia Morrissey Primary Care Provider +1- [phone] Reason for Visit * Reason Comments Return Visit Encounter Details Date Type Department Care Team (Late st Contact Info) Description 07/14/2024 11:45 AM EDT Office Visit Gynecology/Obstetric s [address] [place] [address] Tita Bassett CRNP [address] [place] [address] Supervision of normal first , antepartum*; Class II obesity; Anxiety during Allergies No known active allergiesdocumented as of this encounter (statuses as of 07/14/2024) Medications Medication Sig Dispensed Refills Start Date [...] as of this encounter (statuses as of 07/14/2024) Active Problems Problem Noted Date Diagnosed Date [...] as of this encounter (statuses as of 07/14/2024) Resolved Problems Problem Noted Date Diagnosed Date Resolved Date HEMANGIOMA SKIN 2004 07/18/2022 Routine child health exam 2004 documented as of this encounter (statuses as of 07/14/2024) Immunizations Name Administration Dates Next Due COVID-19 [...] money to get more. Never true 02/25/2024 [place] Depression Scale Answer Date Recorded [place] Depression Scale Total 5 06/30/2024 The thought [...] 02/25/2024 Does the household have a re lar source of income? (Household - for ages [...] Sign Reading Time Taken Comments Blood Pressure 110/70 07/14/2024 11:16 AM EDT Pulse - - Temperature - - Respiratory Rate - - Oxygen Saturation - - Inhaled Oxygen Concentration - - Weight 115.7 kg (255 lb) 07/14/2024 11:16 AM EDT Height 170.2 cm (5' 7") 07/14/2024 11:16 AM EDT Body Mass Index 39.94 07/14/2024 11:16 AM EDT documented in this encounter Progress Notes * Tita Bassett CRNP - 07/14/2024 11:07 AM EDT 38w No concerns. Baby is active. No contractions, bleeding, LOF. C/s next week for breech presentation. ASSESSMENT assessment with Non-stress Test completed on 07/14/2024 at 38.0weeks gestation for indication of obesity heart baseline: 130 bpm Variability: Moderate Decelerations: absent Accelerations: present Contractions: None NST start time: 1105 NST stop time: 1135 NST strip reviewed, interpreted, and approved by OB provider, KAPIL Swift . NST strip stored in clinic storage file documented in this encounter Plan of Treatment Upcoming Encounters Date Type Department Care Team (Late st Contact Info) Description 07/31/2024 11:30 AM EDT Office Visit Gynecology/Obstetrics [facility] [address] [facility] [place] [address] María Disla PA-C [address] [place] [address] [place] [address] Health Maintenance Due Date Last Done Comments [...] during documented in this encounter Care Teams Manuscript Editor Relationship Specialty Start Date End Date Grecia Morrissey CRNP [address] [place] [address] PCP - General Nurse Practitioner 05/20/24 documented as of this encounter
--- OUTSIDE RECORDS SUMMARY | 2024-07-17 04:18 | External Medical Summary | Summary of Care ---
Author Name Unknown Organization [facility] Address [address] [place] [address] Phone [phone] Care Team Providers Care Therapy Director Name Role Phone Grecia Morrissey Primary Care Provider +1- [phone] Reason for Visit * Reason Onset Date Comments Medication Refill 05/21/2024 Encounter Details Date Type Department Care Team (Late st Contact Info) Description 05/21/2024 [facility] [place] [address] [facility]recia Morrissey CR[facility] [place] [address] GENEVA (generalized anxiety disorder) Allergies No known active allergiesdocumented as of this encounter (statuses as of 05/22/2024) Medications Medication Sig Dispensed Refills Start Date End Date Status 28-0.8 MG Oral Tablet Take by mouth. Active Ondansetron HCl 4 MG Oral TabletIndications:Na usea and vomiting during Take 1 Tablet by mouth every 8 hours as needed for Nausea. 30 Tablet 3 01/23/2024 Active busPIRone HCl 10 MG Oral Tablet (Buspar)Indications: GENEVA (generalized anxiety disorder) Take 1 Tablet by mouth in the morning and 1 Tablet before bedtime. 180 Tablet 1 05/13/2024 Active Sertraline HCl 100 MG Oral Tablet (Zoloft)Indications: GENEVA (generalized anxiety disorder) Take 1.5 Tablets by mouth in the morning. 145 Tablet 3 05/20/2024 Active Iron 325 (65 Fe) MG Oral Tablet Take by mouth. Active documented as of this encounter (statuses as of 05/22/2024) Active Problems Problem Noted Date Diagnosed Date [...] as of this encounter (statuses as of 05/22/2024) Resolved Problems Problem Noted Date Diagnosed Date Resolved Date HEMANGIOMA SKIN 2004 07/18/2022 Routine child health exam 2004 documented as of this encounter (statuses as of 05/22/2024) Immunizations Name Administration Dates Next Due COVID-19 mRNA, LNP-s, No Pre serve, 2-Dose Series (Moderna) 11/26/2021,06/13/2021,05/23/2021 DTaP Dipth/Tet/Acell Pertussis (Infanrix), Peds 11/17/2008,12/19/2005 H1N1 2009 Influenza, Intranasal 09/23/2009 HPV Vaccine, 9-Valent 06/21/2020,05/13/2020 Hepatitis A, Ped/Adol., 18 y ear and below, 2-Dose 05/13/2020 IPV - Polio Virus Vaccine (Inact) 11/17/2008, MMR - Measles/Mumps/Rubella Vaccine 11/17/2008 Meningococcal Conjugate Vacc ine (Menactra/Menveo) 01/15/2017 Meningococcal MCV4O Conjugat e Vaccine (Menveo) 06/21/2020 Seasonal Influenza Intranasal 09/02/2010 Seasonal Influenza Virus Vac cine, Unspecified Formulation 09/08/2022 Seasonal Influenza, PF, 6 M & above, IM , (FluLaval or Fluzone) 08/16/2023,08/16/2023,09/08/2022,09/19 Seasonal Influenza, Split, I IV3, No Preserve, Inj 09/20/2006 Seasonal Influenza, Split, I IV3, With Preserve, [...] money to get more. Never true 02/25/2024 [place] Depression Scale Answer Date Recorded [place] Depression Scale Total 0 12/26/2023 The thought [...] on file documented as of this encounter Miscellaneous Notes * Telephone Encounter - Johanna Farrell - 05/22/2024 7:09 AM EDTRefused Prescriptions: Disp Refills Sertraline HCl 100 MG Oral Tablet (Zoloft) 145 Ta*3 Sig: Take 1.5 Tablets by mouth in the morning.Refused By: NEELAM FARRELLeason for Refusal: Duplicate Request---- documented in this encounter Plan of Treatment Upcoming Encounters Date Type Department Care Team (Late st Contact Info) Description 05/23/2024 3:30 PM EDT Imaging Radiology [address] [place] [address] 06/09/2024 9:30 AM EDT Office Visit Gynecology/Obstetrics [address] [place] [address] Tita Bassett CRNP [address] [place] [address] 06/23/2024 9:30 AM EDT Office Visit Gynecology/Obstetrics [address] [place] [address] Tita Bassett CRNP [address] [place] [address] 07/09/2024 9:00 AM EDT Office Visit Gynecology/Obstetrics [facility] [address] [place] [address] Tita Bassett CRNP [address] [place] [address] Ashish, Non Stress Tests Jan [address] [place] [address] 07/16/2024 9:00 AM EDT Office Visit Gynecology/Obstetrics [facility] [address] [place] [address] Tita Bassett CRNP [address] [place] [address] Ashish, Non Stress Tests Jan [address] [place] [address] 07/23/2024 9:00 AM EDT Office Visit Gynecology/Obstetrics [facility] [address] [place] [address] Tita Bassett CRNP [address] [place] [address] Hinoj[place], Non Stress Tests Jan [address] [place] [address] Health Maintenance Due Date Last Done Comments [...] as of this encounter Visit Diagnoses Diagnosis GENEVA (generalized anxiety disorder) Generalized anxiety disorder documented in this encounter Care Teams Therapy Director Relationship Specialty Start Date End Date Grecia Morrissey CRNP [address] [place] [address] PCP - General Nurse Practitioner 05/20/24 documented as of this encounter
--- OUTSIDE RECORDS SUMMARY | 2024-07-17 04:18 | External Medical Summary | Summary of Care ---
Author Name Unknown Organization [facility] Address [address] [place] [address] Phone [phone] Care Team Providers Care Hosiery Repairer Name Role Phone Grecia Morrissey Primary Care Provider +1- [phone] Reason for Visit * Reason Comments Return Visit Encounter Details Date Type Department Care Team (Late st Contact Info) Description 06/23/2024 9:30 AM EDT Office Visit Gynecology/Obstetric s [address] [place] [address] Tita Bassett CRNP [address] [place] [address] Supervision of normal first , antepartum*; Class II obesity; Anxiety during Allergies No known active allergiesdocumented as of this encounter (statuses as of 06/23/2024) Medications Medication Sig Dispensed Refills Start Date [...] before bedtime. 180 Tablet 1 05/13/2024 Active Iron 325 (65 Fe) MG Oral Tablet Take by mouth. Active Sertraline HCl 100 MG Oral Tablet (Zoloft)Indications: GENEVA (generalized anxiety disorder) Take 1.5 Tablets by mouth in the morning. 145 Tablet 3 05/27/2024 Active Sertraline HCl 100 MG Oral Tablet (Zoloft) Take 1.5 Tablets by mouth in the morning. 14 Tablet 05/27/2024 Active documented as of this encounter (statuses as of 06/23/2024) Active Problems Problem Noted Date Diagnosed Date [...] as of this encounter (statuses as of 06/23/2024) Resolved Problems Problem Noted Date Diagnosed Date Resolved Date HEMANGIOMA SKIN 2004 07/18/2022 Routine child health exam 2004 documented as of this encounter (statuses as of 06/23/2024) Immunizations Name Administration Dates Next Due COVID-19 [...] money to get more. Never true 02/25/2024 [place] Depression Scale Answer Date Recorded [place] Depression Scale Total 0 12/26/2023 The thought [...] Sign Reading Time Taken Comments Blood Pressure 118/62 06/23/2024 9:02 AM EDT Pulse - - Temperature - - Respiratory Rate - - Oxygen Saturation - - Inhaled Oxygen Concentration - - Weight 117 kg (258 lb) 06/23/2024 9:02 AM EDT Height 170.2 cm (5' 7") 06/23/2024 9:02 AM EDT Body Mass Index 40.41 06/23/2024 9:02 AM EDT documented in this encounter Progress Notes * Tita Bassett CRNP - 06/23/2024 9:22 AM EDT 35w Growth u/s today. Baby is breech. Would like to schedule c/s. Aware that this could be cancelled ifbaby flips. Had a debbi-sized amount of bleeding with intercourse. This occurred prior to as well. Baby is active. Denies contractions. To begin NSTs at37w. KAPIL Swift * Holley Quinn LPN - 06/23/2024 9:02 AM EDT 35w0d Has not taken iron for 2 weeks Makes her sick to stomach documented in this encounter Plan of Treatment Upcoming Encounters Date Type Department Care Team (Late st Contact Info) Description 06/30/2024 2:15 PM EDT Office Visit Gynecology/Obstetrics [facility] [address] [place] [address] Tita Bassett CRNP [address] [place] [address] 07/09/2024 9:00 AM EDT Office Visit Gynecology/Obstetrics [facility] [address] [place] [address] Tita Bassett CRNP [address] [place] [address] Ashish Non Stress Tests Jan [address] [place] [address] 07/14/2024 11:45 AM EDT Office Visit Gynecology/Obstetrics [address] [place] [address] Tita Bassett CRNP [address] [place] [address] 07/16/2024 9:00 AM EDT Office Visit Gynecology/Obstetrics [facility] [address] [place] [address] Tita Bassett CRNP [address] [place] [address] Ashish, Non Stress Tests Jan [address] [place] [address] 07/23/2024 9:00 AM EDT Office Visit Gynecology/Obstetrics [facility] [address] [place] [address] Tita Bassett CRNP [address] [place] [address] Ashish Non Stress Tests Jan [address] [place] [address] Health Maintenance Due Date Last Done Comments [...] during documented in this encounter Care Teams Hosiery Repairer Relationship Specialty Start Date End Date Grecia Morrissey CRNP [address] [place] [address] PCP - General Nurse Practitioner 05/20/24 documented as of this encounter
--- OUTSIDE RECORDS SUMMARY | 2024-07-17 04:18 | External Medical Summary | Summary of Care ---
Author Name Unknown Organization [facility] Address [address] [place] [address] Phone [phone] Care Team Providers Care Matrix Bath Operator Name Role Phone Grecia Morrissey Primary Care Provider +1- [phone] Reason for Visit * Reason Comments Return Visit Encounter Details Date Type Department Care Team (Late st Contact Info) Description 06/30/2024 2:15 PM EDT Office Visit Gynecology/Obstetric s [facility] [address] [place] [address] Tita Bassett CRNP [address] [place] [address] Supervision of normal first , antepartum*; Class [...] money to get more. Never true 02/25/2024 [place] Depression Scale Answer Date Recorded [place] Depression Scale Total 0 12/26/2023 The thought [...] documented in this encounter Progress Notes * iTta Bassett CRNP - 06/30/2024 2:18 PM EDT [...] 07/09/2024 2:45 PM EDT Office Visit Gynecology/Obstetrics [facility] [address] [place] [address] Eduardo Raman MD [address] [place] [address] HinojosaMerari garcia Stress Tests [facility] [address] [place] [address] 07/14/2024 11:45 AM EDT Office Visit Gynecology/Obstetrics [address] [place] [address] Tita Bassett CRNP [address] [place] [address] 07/31/2024 11:30 AM EDT Office Visit Gynecology/Obstetrics [facility] [address] [place] [address] María Disla PA-C [address] [place] [address] [place] [address] Scheduled Orders Name Type Priority Associated Diagnoses [...] during documented in this encounter Care Teams Matrix Bath Operator Relationship Specialty Start Date End Date Grecia Morrissey CRNP [address] [place] [address] PCP - General Nurse Practitioner 05/20/24 documented as of this encounter
--- OUTSIDE RECORDS SUMMARY | 2024-07-17 04:18 | External Medical Summary ---
Author Name Unknown Address Unknown Organization [id number]:LABORATORY [facility] [place] - [address] [place] [address] Laboratory Report Ordering Provider Test Date Status BRIDGER ORTEZ 06/30/2024 14:51:58 Final Observation Date Value Abnormality Reference (Units ) Status Streptococcus agalactiae DNA [Presence] in Specimen by JOEL with probe detection 06/30/2024 14:51:58 Negative Negative Final No Group B Streptococcus det ected by culture-enhanced PCR (amplified probe). GBS GBSCT - [facility] 06/30/2024 14:51:58 0.0 Final GBS SPCCT - [facility] 06/30/2024 14:51:58 30.8 Final Performing Location LABORATORY [facility] [place] - [address] [place] [address]
--- OUTSIDE RECORDS SUMMARY | 2024-07-17 04:18 | External Medical Summary ---
Author Name Unknown Address Unknown Organization K0G:LABORATORY [facility] [place] [facility] - [address] [place] [address] Laboratory Report Ordering Provider Test Date Status BRIDGER ORTEZ 05/07/2024 11:06:31 Final Observation Date Value Abnormality Reference (Units ) Status Glucose [Moles/volume] in Serum or Plasma --1 hour post 50 g glucose PO 05/07/2024 11:06:31 107 70-129 (mg/dL) Final Performing Location [facility] [address] [place] [address]
--- OUTSIDE RECORDS SUMMARY | 2024-07-17 04:18 | External Medical Summary ---
Author Name Unknown Address Unknown Organization K01:[facility] [place] [address] [place] [address] Laboratory Report Ordering Provider Test Date Status BRIDGER ORTEZ 05/07/2024 11:06:31 Final Observation Date Value Abnormality Reference (Units ) Status Retic, % (auto) 05/07/2024 11:06:31 2.29 Above high normal 0.80-1.90 (%) Final Reticulocytes, Absolute 05/07/2024 11:06:31 93.7 31.3-100.1 (K/uL) Final Reticulocyte fraction, immature 05/07/2024 11:06:31 25.1 Above high normal 2.5-20.6 (%) Final Reticulocyte HGB 05/07/2024 11:06:31 29.3 Below low normal 29.7-37.4 (pg) Final Performing Location [facility] [place] [address] [place] [address]
--- OUTSIDE RECORDS SUMMARY | 2024-07-17 04:18 | External Medical Summary | Summary of Care ---
Author Name Unknown Organization [facility] Address [address] [place] [address] Phone [phone] Care Team Providers Care City Collector Name Role Phone Grecia Morrissey Primary Care Provider +1- [phone] Reason for Visit * Reason Comments Return Visit Encounter Details Date Type Department Care Team (Late st Contact Info) Description 05/21/2024 7:45 AM EDT Office Visit Gynecology/Obstetric s [facility] [address] [place] [address] Macrina Shields PA-C [address] [place] [address] Supervision of normal first , antepartum*; Class II obesity; Anxiety during Allergies No known active allergiesdocumented as of this encounter (statuses as of 05/21/2024) Medications Medication Sig Dispensed Refills Start Date [...] as of this encounter (statuses as of 05/21/2024) Active Problems Problem Noted Date Diagnosed Date [...] as of this encounter (statuses as of 05/21/2024) Resolved Problems Problem Noted Date Diagnosed Date Resolved Date HEMANGIOMA SKIN 2004 07/18/2022 Routine child health exam 2004 documented as of this encounter (statuses as of 05/21/2024) Immunizations Name Administration Dates Next Due COVID-19 [...] money to get more. Never true 02/25/2024 [place] Depression Scale Answer Date Recorded [place] Depression Scale Total 0 12/26/2023 The thought [...] Sign Reading Time Taken Comments Blood Pressure 118/70 05/21/2024 7:46 AM EDT Pulse - - Temperature - - Respiratory Rate - - Oxygen Saturation - - Inhaled Oxygen Concentration - - Weight 112 kg (247 lb) 05/21/2024 7:46 AM EDT Height - - Body Mass Index - - documented in this encounter Progress Notes * Macrina Shields PA-C - 05/21/2024 7:58 AM EDT 30w2d Doing well, no complaints. Denies VB, LOF, contractions. Baby is active. Next growth scheduled 05/23 secondary to class 2. RTC in 2 weeks Macrina Shields PA-C * Chely Carrillo LPN - 05/21/2024 7:45 AM EDT 30w2d Denies vaginal bleeding/rom + movement No new concerns documented in this encounter Plan of Treatment Upcoming Encounters Date Type Department Care Team (Late st Contact Info) Description 05/23/2024 3:30 PM EDT Imaging Radiology [address] [place] [address] 06/09/2024 9:30 AM EDT Office Visit Gynecology/Obstetrics [address] [place] [address] Tita Bassett CRNP [address] [place] [address] 06/23/2024 9:30 AM EDT Office Visit Gynecology/Obstetrics [address] [place] [address] Tita Bassett CRNP [address] [place] [address] 07/09/2024 9:00 AM EDT Office Visit Gynecology/Obstetrics [facility] [address] [place] [address] Tita Bassett CRNP [address] [place] [address] Ashish Non Stress Tests Jan [address] [place] [address] 07/16/2024 9:00 AM EDT Office Visit Gynecology/Obstetrics [facility] [address] [place] [address] Tita Bassett CRNP [address] [place] [address] Ashish Non Stress Tests Jan [address] [place] [address] 07/23/2024 9:00 AM EDT Office Visit Gynecology/Obstetrics [facility] [address] [place] [address] Tita Bassett CRNP [address] [place] [address] Ashish, Non Stress Tests Jan [address] [place] [address] Health Maintenance Due Date Last Done Comments HPV (Gardasil) Vaccine (3 - 3-dose series) 11/13/2020 06/21/2020, 05/13/2020 COVID-19 Vaccine (2022- season) 2023 11/26/2021, 06/13/2021, 05/23/2021 Yearly Wellness [...] during documented in this encounter Care Teams City Collector Relationship Specialty Start Date End Date Grecia Morrissey CRNP [address] [place] [address] PCP - General Nurse Practitioner 05/20/24 documented as of this encounter
--- OUTSIDE RECORDS SUMMARY | 2024-07-17 04:18 | External Medical Summary | Summary of Care ---
Author Name Unknown Organization [facility] Address [address] [place] [address] Phone [phone] Care Team Providers Care Trucking Supervisor Name Role Phone Grecia Morrissey Primary Care Provider +1- [phone] Reason for Visit * Reason Onset Date Comments Medication Refill 06/24/2024 Encounter Details Date Type Department Care Team (Late st Contact Info) Description 06/24/2024 [facility] [place] [address] [facility] Morrissey [facility] [place] [address] GENEVA (generalized anxiety disorder)* Allergies No known active allergiesdocumented as of this encounter (statuses as of 06/26/2024) Medications Medication Sig Dispensed Refills Start Date End Date Status 28-0.8 MG Oral Tablet Take by mouth. Active Ondansetron HCl 4 MG Oral TabletIndications :Nausea and vomiting during Take 1 Tablet by mouth every 8 hours as needed for Nausea. 30 Tablet 3 01/23/2024 Active Iron 325 (65 Fe) MG Oral Tablet Take by mouth. Active Sertraline HCl 100 MG Oral Tablet (Zoloft)Indicatio ns:GENEVA (generalized anxiety disorder) Take 1.5 Tablets by mouth in the morning. 145 Tablet 3 05/27/2024 Active Sertraline HCl 100 MG Oral Tablet (Zoloft) Take 1.5 Tablets by mouth in the morning. 14 Tablet 05/27/2024 Active busPIRone HCl 10 MG Oral Tablet (Buspar)Indicatio ns:GENEVA (generalized anxiety disorder) Take 1 Tablet by mouth in the morning and 1 Tablet before bedtime. 180 Tablet 1 06/26/2024 Active busPIRone HCl 10 MG Oral Tablet (Buspar)Indicatio ns:GENEVA (generalized anxiety disorder) Take 1 Tablet by mouth in the morning and 1 Tablet before bedtime. 180 Tablet 1 05/13/2024 06/26/2024 Discontinued (Refill) documented as of this encounter (statuses as of 06/26/2024) Active Problems Problem Noted Date Diagnosed Date [...] as of this encounter (statuses as of 06/26/2024) Resolved Problems Problem Noted Date Diagnosed Date Resolved Date HEMANGIOMA SKIN 2004 07/18/2022 Routine child health exam 2004 documented as of this encounter (statuses as of 06/26/2024) Immunizations Name Administration Dates Next Due COVID-19 [...] money to get more. Never true 02/25/2024 [place] Depression Scale Answer Date Recorded [place] Depression Scale Total 0 12/26/2023 The thought [...] No 02/25/2024 Does the household have a [facility] source of income? (Household - for ages [...] encounter Miscellaneous Notes * Telephone Encounter - Grecia Morrissey CRNP - 06/26/2024 1:45 PM EDTSigned Prescriptions: Disp Refills busPIRone HCl 10 MG Oral Tablet (Buspar) 180 Ta*1 Sig: Take 1 Tablet by mouth in the morning and 1 Tablet before bedtime.Authorizing Provider: ISAIAS MORRISSEYTHRefloli Prescriptions: Disp Refills busPIRone HCl 10 MG Oral Tablet (Buspar) 180 Ta*1 Sig: Take 1 Tabletby mouth in the morning and 1 Tablet before bedtime.RefusedBy: YVON PETERSEN for Refusal: Too soon * Addendum Note - Grecia Morrissey CRNP - 06/26/2024 1:45 PM EDTAddended by: GRECIA MORRISSEY on: 06/26/2024 01:45 PM Modules accepted: Orders * Addendum Note - Rhys Smith LPN - 06/26/2024 9:58 AM EDTAddended by: RHYS SMITH on: 06/26/2024 09:58 AM Modules accepted: Orders * Telephone Encounter - Rhys Smith LPN - 06/26/2024 9:57 AM EDT Insurance will not fill Buspar at [facility], need to be sent via mail order. Please resend to appropriatepharmacy. TY * Telephone Encounter - Yvon Petersen [facility] - 06/25/2024 2:47 PM EDTRefused Prescriptions: Disp Refills busPIRone HCl 10 MG Oral Tablet (Buspar) 180 Ta*1 Sig: Take 1 Tablet by mouth in the morning and 1 Tablet before bedtime.Refused By: YVON PETERSEN for Refusal: Too soon documented in this encounter Plan of Treatment Upcoming Encounters Date Type Department Care Team (Late st Contact Info) Description 06/30/2024 2:15 PM EDT [facility] [address] [place] [address] Tita Bassett CRNP [address] [place] [address] 07/09/2024 2:45 PM EDT Office Visit Gynecology/Obstetrics [facility] [address] [place] [address] Eduardo Raman MD [address] [place] [address] HinojosaMerari garcia Stress Tests [facility] [address] [place] [address] 07/14/2024 11:45 AM EDT Office Visit Gynecology/Obstetrics [address] [place] [address] Tita Bassett CRNP [address] [place] [address] 07/31/2024 11:30 AM EDT Office Visit Gynecology/Obstetrics [facility] [address] [place] [address] María Disla PA-C [address] [place] [address] [place] [address] Health Maintenance Due Date Last Done Comments HPV (Gardasil) Vaccine (3 - 3-dose series) 11/13/2020 06/21/2020, 05/13/2020 COVID-19 Vaccine (2022-24 season) 2023 11/26/2021, 06/13/2021, 05/23/2021 Yearly Wellness [...] encounter Visit Diagnoses Diagnosis GENEVA (generalized anxiety disorder)- Primary Generalized anxiety disorder documented in this encounter Care Teams Trucking Supervisor Relationship Specialty Start Date End Date Grecia Morrissey CRNP [address] [address] PCP - General Nurse Practitioner 05/20/24 documented as of this encounter
--- OUTSIDE RECORDS SUMMARY | 2024-07-17 04:18 | External Medical Summary | Summary of Care ---
Author Name Unknown Organization [facility] Address [address] [place] [address] Phone [phone] Care Team Providers Care Signal Tester Name Role Phone Grecia Morrissey Primary Care Provider +1- [phone] Reason for Visit * Reason Onset Date Comments Medication Refill 06/24/2024 Encounter Details Date Type Department Care Team (Late st Contact Info) Description 06/24/2024 [facility]ill [facility] [place] [address] [facility] [place] [address] GENEVA (generalized anxiety disorder) Allergies No known [...] money to get more. Never true 02/25/2024 [place] Depression Scale Answer Date Recorded [place] Depression Scale Total 0 12/26/2023 The thought [...] as of this encounter Miscellaneous Notes * Addendum Note - Rhys Smith LPN - 06/26/2024 9:58 AM EDTAddended by: RHYS SMITH on: 06/26/2024 09:58 AM Modules accepted: Orders * Telephone Encounter - Rhys Smith LPN - 06/26/2024 9:57 AM EDT [facility] Buspar [facility], need to be sent via mail order. Please resend to appropriatepharmacy. TY * Telephone Encounter - Yvon Petersen RPh - 06/25/2024 2:47 PM EDTRefused Prescriptions: Disp [...] [facility] [address] [place] [address] Tita Bassett CRNP [address] [place] [address] 07/09/2024 2:45 PM EDT Office Visit Gynecology/Obstetrics [facility] [address] [place] [address] Eduardo Raman MD [address] [place] [address] [place], Non Stress Tests Jan [address] [place] [address] 07/14/2024 11:45 AM EDT Office Visit Gynecology/Obstetrics [address] [place] [address] Tita Bassett CRNP [address] [place] [address] 07/31/2024 11:30 AM EDT Office Visit Gynecology/Obstetrics [facility] [address] [place] [address] María Disla PA-C [address] [place] [address] [place] [address] Health Maintenance Due Date Last Done Comments [...] disorder documented in this encounter Care Teams Signal Tester Relationship Specialty Start Date End Date Grecia Morrissey CRNP [address] [place] [address] PCP - General Nurse Practitioner 05/20/24 documented as of this encounter
--- OUTSIDE RECORDS SUMMARY | 2024-07-17 04:18 | External Medical Summary | Summary of Care ---
Author Name Unknown Organization [facility] Address [address] [place] [address] Phone [phone] Care Team Providers Care Manager Intensive Care Name Role Phone rGecia Morrissey Primary Care Provider +1- [phone] Reason for Visit * Reason Comments Return Visit Encounter Details Date Type Department Care Team (Late st Contact Info) Description 06/09/2024 9:30 AM EDT Office Visit Gynecology/Obstetric s [address] [place] [address] Tita Bassett CRNP [address] [place] [address] Supervision of normal first , antepartum*; Class II obesity; Anxiety during Allergies No known active allergiesdocumented as of this encounter (statuses as of 06/09/2024) Medications Medication Sig Dispensed Refills Start Date [...] as of this encounter (statuses as of 06/09/2024) Active Problems Problem Noted Date Diagnosed Date [...] as of this encounter (statuses as of 06/09/2024) Resolved Problems Problem Noted Date Diagnosed Date Resolved Date HEMANGIOMA SKIN 2004 07/18/2022 Routine child health exam 2004 documented as of this encounter (statuses as of 06/09/2024) Immunizations Name Administration Dates Next Due COVID-19 [...] money to get more. Never true 02/25/2024 [place] Depression Scale Answer Date Recorded [place] Depression Scale Total 0 12/26/2023 The thought [...] Sign Reading Time Taken Comments Blood Pressure 122/68 06/09/2024 9:40 AM EDT Pulse - - Temperature - - Respiratory Rate - - Oxygen Saturation - - Inhaled Oxygen Concentration - - Weight 113.4 kg (250 lb) 06/09/2024 9:40 AM EDT Height 170.2 cm (5' 7") 06/09/2024 9:40 AM EDT Body Mass Index 39.16 06/09/2024 9:40 AM EDT documented in this encounter Progress Notes * Tita Bassett CRNP - 06/09/2024 9:55 AM EDT 33w Some tingling in hands and feet, no other concerns. Baby is active. No contractions, bleeding, LOF. Growth u/s in 2 weeks. Planning to breast feed. Discussed contraception, likely interested in pills. KAPIL Swift * Holley Quinn LPN - 06/09/2024 9:40 AM EDT 33w0d Denies any concerns documented in this encounter Plan of Treatment Upcoming Encounters Date Type Department Care Team (Late st Contact Info) Description 06/23/2024 8:15 AM EDT Imaging Radiology [address] [place] [address] 06/23/2024 9:30 AM EDT Office Visit Gynecology/Obstetrics [address] [place] [address] Tita Bassett CRNP [address] [place] [address] 07/09/2024 9:00 AM EDT Office Visit Gynecology/Obstetrics [facility] [address] [place] [address] Tita Bassett CRNP [address] [place] [address] Ashish Non Stress Tests Jan [address] [place] [address] 07/16/2024 9:00 AM EDT Office Visit Gynecology/Obstetrics [facility] [address] [place] [address] Tita Bassett CRNP [address] [place] [address] Ashish Non Stress Tests Jan [address] [place] [address] 07/23/2024 9:00 AM EDT Office Visit Gynecology/Obstetrics [facility] [address] [place] [address] Tita Bassett CRNP [address] [place] [address] Ashish, Non Stress Tests Jan [address] [place] [address] Scheduled Orders Name Type Priority Associated Diagnoses Orde r Schedule US PREG FOLLOW-UP EACH FETUS Medical Imaging Routine Class II obesity Expected: 06/23/2024 (Approximate), Expires: 07/10/2025 Health Maintenance Due Date Last Done Comments [...] during documented in this encounter Care Teams Manager Intensive Care Relationship Specialty Start Date End Date Grecia Morrissey CRNP [address] [facility] [place] [address] PCP - General Nurse Practitioner 05/20/24 documented as of this encounter
--- OUTSIDE RECORDS SUMMARY | 2024-07-17 04:18 | External Medical Summary | Summary of Care ---
Author Name Unknown Organization [facility] Address [address] [place] [address] Phone [phone] Care Team Providers Care Agricultural Aircraft Pilot Name Role Phone Unavailable Primary Care Provider Unavailabl e Reason for Visit * Reason Onset Date Comments Medication Refill 05/13/2024 Encounter Details Date Type Department Care Team (Late st Contact Info) Description 05/13/[address] [facility] [address] [place] [address] Grecia Morrissey CRNP [address] [place] [address] GENEVA (generalized anxiety disorder) Allergies No known active allergiesdocumented as of this encounter (statuses as of 05/13/2024) Medications Medication Sig Dispensed Refills Start Date End Date Status Sertraline HCl 100 MG Oral Tablet (Zoloft)Indications: GENEVA (generalized anxiety disorder) Take 1.5 Tablets by mouth in the morning. 145 Tablet 3 10/01/2023 Active 28-0.8 MG Oral Tablet Take by mouth. [...] before bedtime. 180 Tablet 1 05/13/2024 Active documented as of this encounter (statuses as of 05/13/2024) Active Problems Problem Noted Date Diagnosed Date [...] as of this encounter (statuses as of 05/13/2024) Resolved Problems Problem Noted Date Diagnosed Date Resolved Date HEMANGIOMA SKIN 2004 07/18/2022 Routine child health exam 2004 documented as of this encounter (statuses as of 05/13/2024) Immunizations Name Administration Dates Next Due COVID-19 [...] money to get more. Never true 02/25/2024 [place] Depression Scale Answer Date Recorded [place] Depression Scale Total 0 12/26/2023 The thought [...] encounter Miscellaneous Notes * Telephone Encounter - Elham Alaniz LPN - 05/13/2024 1:08 PM EDT Sent to pharmacy today documented in this encounter Plan of Treatment Upcoming Encounters Date Type Department Care Team (Late st Contact Info) Description 05/21/2024 7:45 AM EDT [facility] [address] [place] [address] Macrina Shields PA-C [address] [place] [address] 05/23/2024 3:30 PM EDT Imaging Radiology [address] [place] [address] 06/09/2024 9:30 AM EDT Office Visit Gynecology/Obstetrics [address] [place] [address] Tita Bassett CRNP [address] [place] [address] 06/23/2024 9:30 AM EDT Office Visit Gynecology/Obstetrics [address] [place] [address] Tita Bassett CRNP [address] [place] [address] Health Maintenance Due Date Last Done Comments [...]
--- OUTSIDE RECORDS SUMMARY | 2024-07-17 04:18 | External Medical Summary | Summary of Care ---
Author Name Unknown Organization [facility] Address [address] [place] [address] Phone [phone] Care Team Providers Care Operations Officer Afloat Name Role Phone Unavailable Primary Care Provider Unavailabl e Encounter Details Date Type Department Care Team (Late st Contact Info) Description 05/13/2024 Refill Family [facility] [address] [facility]h [facility] [address] GENEVA (generalized anxiety disorder) Allergies No known active allergiesdocumented as of this encounter (statuses as of 05/13/2024) Medications Medication Sig Dispensed Refills Start Date End Date Status Sertraline HCl 100 MG Oral Tablet (Zoloft)Indicatio [...] before bedtime. 180 Tablet 1 05/13/2024 Active busPIRone HCl 10 MG Oral Tablet (Buspar)Indicatio ns:GENEVA (generalized anxiety disorder) Take 1 Tablet by mouth in the morning and 1 Tablet before bedtime. 180 Tablet 1 10/01/2023 05/13/2024 Discontinued (Refill) documented as of this encounter [...] money to get more. Never true 02/25/2024 [place] Depression Scale Answer Date Recorded [place] Depression Scale Total 0 12/26/2023 The thought [...] No 02/25/2024 Does the household have a unm psychiatric centerlar source of income? (Household - for [...] Miscellaneous Notes * Telephone Encounter - Grecia Conteh CRNP - 05/13/2024 10:10 AM EDTSigned Prescriptions: Disp Refills busPIRone HCl 10 MG Oral Tablet (Buspar) 180 Ta*1 Sig: Take 1 Tablet by mouth in the morning and 1 Tablet before bedtime.Authorizing Provider: GRECIA CONTEH----- * Telephone Encounter - Elham Alaniz LPN - 05/13/2024 9:54 AM EDT Pt needs pended med sent to diff pharmacy please. documented in this encounter Plan of Treatment Upcoming Encounters Date Type Department Care Team (Late st Contact Info) Description 05/22/2024 2:30 PM EDT Office Visit Gynecology/Obstetrics [facility] [address] [place] [address] Macrina Shields PA-C [address] [place] [address] 05/23/2024 3:30 PM EDT Imaging Radiology [address] [place] [address] 06/09/2024 9:30 AM EDT Office Visit Gynecology/Obstetrics [address] [place] [address] Tita Bassett CRNP [address] [place] [address] 06/23/2024 9:30 AM EDT Office Visit Gynecology/Obstetrics [address] [place] [address] Tita Bassett CRNP [address] [place] [address] Health Maintenance Due Date Last Done Comments [...]
--- OUTSIDE RECORDS SUMMARY | 2024-07-17 04:18 | External Medical Summary | Summary of Care ---
Author Name Unknown Organization [facility] Address [address] [place] [address] Phone [phone] Care Team Providers Care Computing Machine Operator Name Role Phone Grecia Morrissey Primary Care Provider +1- [phone] Reason for Visit * Reason Onset Date Comments Medication Refill 05/20/2024 Encounter Details Date Type Department Care Team (Late st Contact Info) Description 05/20/2024 [facility]ill [facility] [place] [address] Grecia Morrissey CR[facility] [place] [address] GENEVA (generalized anxiety disorder) Allergies No known active allergiesdocumented as of this encounter (statuses as of 05/20/2024) Medications Medication Sig Dispensed Refills Start Date [...] the morning. 145 Tablet 3 05/20/2024 Active Sertraline HCl 100 MG Oral Tablet (Zoloft)Indicatio ns:GENEVA (generalized anxiety disorder) Take 1.5 Tablets by mouth in the morning. 145 Tablet 3 10/01/2023 05/20/2024 Discontinued (Refill) documented as of this encounter (statuses as of 05/20/2024) Active Problems Problem Noted Date Diagnosed Date [...] as of this encounter (statuses as of 05/20/2024) Resolved Problems Problem Noted Date Diagnosed Date Resolved Date HEMANGIOMA SKIN 2004 07/18/2022 Routine child health exam 2004 documented as of this encounter (statuses as of 05/20/2024) Immunizations Name Administration Dates Next Due COVID-19 [...] money to get more. Never true 02/25/2024 [place] Depression Scale Answer Date Recorded [place] Depression Scale Total 0 12/26/2023 The thought [...] Telephone Encounter - Grecia Morrissey CRNP - 05/20/2024 12:57 PM EDTSigned Prescriptions: Disp Refills Sertraline HCl 100 MG Oral Tablet (Zoloft) 145 Ta*3 Sig: Take 1.5 Tablets by mouth in the morning. Authorizing Provider: GRECIA MORRISSEY * Telephone Encounter - Elham Alaniz LPN - 05/20/2024 12:42 PM EDT Did you pend patient's preferred pharmacy and medication before forwarding?no Pharmacy: [id number] [id number] [facility] pharmacy needed Pending Prescriptions: Disp Refills Sertraline HCl 100 MG Oral Tablet (Zoloft)145 Ta*3 Sig: Take 1.5 Tablets by mouth in the morning. Last Visit: 10/01/2023 (in office), Visit date not found (telemedicine) Next Visit: Visit date not found If no future appointments scheduled, and last appointment is greater than a year ago, please schedule patient for a follow-up appointment Last date the medication was ordered: 10/01/2023 Is this request for a controlled substance?No Urine Drug Screen:No results found for this or any previous visit. Patient Phone Numbers Labs: Lab Results Component Value Date/Time CREAT 0.5 05/07/2024 11:06 AM CREAT 0.7 11/15/2020 10:22 AM POTASSIUM 4.2 08/04/2023 01:11 PM POTASSIUM 4.4 11/15/2020 10:22 AM TSH 1.60 08/04/2023 01:11 PM LDLCALC 115 07/18/2022 08:30 AM LDLCALC 129 05/14/2020 08:41 AM ALT 47 (H) 08/04/2023 01:11 PM ALT 81 (H) 11/15/2020 10:22 AM HGBA1C 5.3 07/18/2022 08:30 AM documented in this encounter Plan of Treatment Upcoming Encounters Date Type Department Care Team (Late st Contact Info) Description 05/21/2024 7:45 AM EDT [facility] [address] [place] [address] Macrina Shields PA-C [address] [place] [address] 05/23/2024 3:30 PM EDT Imaging Radiology [address] [place] [address] 06/09/2024 9:30 AM EDT Office Visit Gynecology/Obstetrics [address] [place] [address] Tita Bassett CRNP [address] [place] [address] 06/23/2024 9:30 AM EDT Office Visit Gynecology/Obstetrics [address] [place] [address] Tita Bassett CRNP [address] [place] [address] 07/09/2024 9:00 AM EDT Office Visit Gynecology/Obstetrics [facility] [address] [place] [address] Tita Bassett CRNP [address] [place] [address] Ashish Non Stress Tests Jan [address] [place] [address] 07/16/2024 9:00 AM EDT Office Visit Gynecology/Obstetrics [facility] [address] [place] [address] Tita Bassett CRNP [address] [place] [address] Ashish, Non Stress Tests Jan [address] [place] [address] 07/23/2024 9:00 AM EDT Office Visit Gynecology/Obstetrics [facility] [address] [place] [address] Tita Bassett CRNP [address] [place] [address] [facility], Merari Stress Tests Jan [address] [place] [address] Health Maintenance Due Date Last Done Comments HPV (Gardasil) Vaccine (3 - 3-dose series) 11/13/2020 06/21/2020, 05/13/2020 COVID-19 Vaccine ( - 2022-24 season) 2023 11/26/2021, 06/13/2021, 05/23/2021 Yearly Wellness [...] disorder documented in this encounter Care Teams Computing Machine Operator Relationship Specialty Start Date End Date Grecia Morrissey CRNP [address] [place] [address] PCP - General Nurse Practitioner 05/20/24 documented as of this encounter
--- OUTSIDE RECORDS SUMMARY | 2024-07-17 04:18 | External Medical Summary | Summary of Care ---
Author Name Unknown Organization [facility] Address [address] [place] [address] Phone [phone] Care Team Providers Care Readiness Paraprofessional Name Role Phone Grecia Morrissey Primary Care Provider +1- [phone] Reason for Visit * Reason Onset Date Comments Medication Refill 06/24/2024 Encounter Details Date Type Department Care Team (Late st Contact Info) Description 06/24/2024 [facility]ill [facility] [place] [address] [facility] [place] [address] GENEVA (generalized anxiety disorder) Allergies No known active allergiesdocumented as of this encounter (statuses as of 06/25/2024) Medications Medication Sig Dispensed Refills Start Date [...] as of this encounter (statuses as of 06/25/2024) Active Problems Problem Noted Date Diagnosed Date [...] as of this encounter (statuses as of 06/25/2024) Resolved Problems Problem Noted Date Diagnosed Date Resolved Date HEMANGIOMA SKIN 2004 07/18/2022 Routine child health exam 2004 documented as of this encounter (statuses as of 06/25/2024) Immunizations Name Administration Dates Next Due COVID-19 [...] money to get more. Never true 02/25/2024 [place] Depression Scale Answer Date Recorded [place] Depression Scale Total 0 12/26/2023 The thought [...] encounter Miscellaneous Notes * Telephone Encounter - Yvon Petersen [facility] - 06/25/2024 2:47 PM EDTRefused Prescriptions: Disp [...] [facility] [address] [place] [address] Tita Bassett CRNP [address] [place] [address] 07/09/2024 2:45 PM EDT Office Visit Gynecology/Obstetrics [facility] Basss [address] [place] [address] Eduardo Raman MD [address] [place] [address] [place] Hinojosa Stress Tests [facility] [address] [place] [address] 07/14/2024 11:45 AM EDT Office Visit Gynecology/Obstetrics [address] [place] [address] Tita Bassett CRNP [address] [place] [address] 07/31/2024 11:30 AM EDT Office Visit Gynecology/Obstetrics Maria Ines Basss [address] [place] [address] María Disla PA-C [address] [place] [address] Health Maintenance Due Date Last Done Comments [...] disorder documented in this encounter Care Teams Readiness Paraprofessional Relationship Specialty Start Date End Date Grecia Morrissey CRNP [address] [place] [address] PCP - General Nurse Practitioner 05/20/24 documented as of this encounter
--- OUTSIDE RECORDS SUMMARY | 2024-07-17 04:18 | External Medical Summary ---
Author Name Unknown Address Unknown Organization K01:[facility] [place] - [address] [place] [address] Laboratory Report Ordering Provider Test Date Status BRIDGER ORTEZ 05/07/2024 11:06:31 Final Observation Date Value Abnormality Reference (Units ) Status Treponema pallidum Ab [Presence] in Serum by Immunoassay 05/07/2024 11:06:31 Nonreactive Nonreactive Final No serologic evidence of syp hilis. No additional testing clinicially indicated at this time. Consider repeat testing in 2-4 weeks if acute or primary syphilis is suspected. Performing Location [facility] [place] - [address] [place] [place] [address]
--- OUTSIDE RECORDS SUMMARY | 2024-07-17 04:18 | External Medical Summary ---
Author Name Unknown Address Unknown Organization K01:[facility] [place] - [address] [facility] [place] [address] Laboratory Report Ordering Provider Test Date Status BRIDGER ORTEZ 05/07/2024 11:06:31 Final Observation Date Value Abnormality Reference (Units ) Status SYNC LEUKOCYTES IN BLOOD BY AUTOMATED COUNT 05/07/2024 11:06:31 11.26 Above high normal 4.00-10.80 (K/uL) Final Segs 05/07/2024 11:06:31 80.7 Above high normal 35.0-65.0 (%) Final Lymphs % 05/07/2024 11:06:31 12.2 Below low normal 23.0-53.0 (%) Final Monos 05/07/2024 11:06:31 5.1 1.0-11.0 (%) Final Eosinophils 05/07/2024 11:06:31 0.9 0.0-6.0 (%) Final Basos 05/07/2024 11:06:31 0.2 0.0-2.0 (%) Final Immature Granulocyte, Percent 05/07/2024 11:06:31 0.9 0.0-2.0 (%) Final Absolute Segs 05/07/2024 11:06:31 9.10 Above high normal 1.80-8.00 (K/uL) Final Lymphs, absolute 05/07/2024 11:06:31 1.37 1.20-5.40 (K/ul) Final Monos, Abs 05/07/2024 11:06:31 0.57 0.00-1.10 (K/uL) Final Eos, Abs 05/07/2024 11:06:31 0.10 0.00-0.70 (K/uL) Final Basos, Abs 05/07/2024 11:06:31 0.02 0.00-0.20 (K/uL) Final Immature Granulocytes, Number 05/07/2024 11:06:31 0.10 0.00-0.20 (K/uL) Final Performing Location [facility] [place] - [facility] [place] [address]
--- OUTSIDE RECORDS SUMMARY | 2024-07-17 04:18 | External Medical Summary | Summary of Care ---
Author Name Unknown Organization [facility] Address [address] [place] [address] Phone [phone] Care Team Providers Care Underground Mine Superintendent Name Role Phone Unavailable Primary Care Provider Unavailabl e Reason for Visit * Reason Comments Return Visit Encounter Details Date Type Department Care Team (Late st Contact Info) Description 05/07/2024 10:30 AM EDT Office Visit Gynecology/Obstetric s [facility] [address] [place] [address] Tita Bassett CRNP [address] [place] [address] Supervision of normal first , antepartum*; Class II obesity; Anxiety during ; Need for prophylactic vaccination with combined arvjgjytcd-hdoyeow-sj rtussis (DTP) vaccine Allergies No known active allergiesdocumented as of this encounter (statuses as of 05/07/2024) Medications Medication Sig Dispensed Refills Start Date End Date Status busPIRone HCl 10 MG Oral Tablet (Buspar)Indications: GENEVA (generalized anxiety disorder) Take 1 Tablet by mouth in the morning and 1 Tablet before bedtime. 180 Tablet 1 10/01/2023 Active Sertraline HCl 100 MG Oral Tablet (Zoloft)Indications: GENEVA (generalized anxiety disorder) Take 1.5 Tablets by mouth in the morning. 145 Tablet 3 10/01/2023 Active 28-0.8 MG Oral Tablet Take by mouth. Active Ondansetron HCl 4 MG Oral TabletIndications:Na usea and vomiting during Take 1 Tablet by mouth every 8 hours as needed for Nausea. 30 Tablet 3 01/23/2024 Active documented as of this encounter (statuses as of 05/07/2024) Active Problems Problem Noted Date Diagnosed Date [...] as of this encounter (statuses as of 05/07/2024) Resolved Problems Problem Noted Date Diagnosed Date Resolved Date HEMANGIOMA SKIN 2004 07/18/2022 Routine child health exam 2004 documented as of this encounter (statuses as of 05/07/2024) Immunizations Name Administration Dates Next Due COVID-19 [...] money to get more. Never true 02/25/2024 [place] Depression Scale Answer Date Recorded [place] Depression Scale Total 0 12/26/2023 The thought [...] Sign Reading Time Taken Comments Blood Pressure 114/68 05/07/2024 10:15 AM EDT Pulse - - Temperature - - Respiratory Rate - - Oxygen Saturation - - Inhaled Oxygen Concentration - - Weight 112.5 kg (248 lb) 05/07/2024 10:15 AM EDT Height 170.2 cm (5' 7") 05/07/2024 10:15 AM EDT Body Mass Index 38.84 05/07/2024 10:15 AM EDT documented in this encounter Progress Notes * Tita Bassett CRNP - 05/07/2024 10:50 AM EDT 28w2d Asking about work restriction- stands for 8 hours a day. Feet are getting very swollen and painful.Advised to talk to her boss, find out what accommodations can be made, which she is agreeable to. Recommend compression stockings. No other concerns. Baby is active. No contractions, bleeding, LOF. Glucola, TDAP today. Growth u/s with next visit. * Holley Quinn LPN - 05/07/2024 10:16 AM EDT 28w2d Doing glucola today Would like tdap documented in this encounter Nursing Notes * Holley Quinn LPN - 05/07/2024 10:39 AM EDT Patient here for tdap injection. Patient doing well no complaints. Injection given IM as ordered. Patient tolerated well. Patient to follow up as directed. Patient instructed to call if any complications. Patient verbalized understanding of instructions given and her follow up appt for 3 months Injection site: Right Deltoid Medication Source: Dispensed stock medication documented in this encounter Plan of Treatment Upcoming Encounters Date Type Department Care Team (Late st Contact Info) Description 05/22/2024 2:30 PM EDT [facility] [address] [place] [address] Macrina Shields PA-C [address] [place] [address] 05/23/2024 3:30 PM EDT Imaging Radiology [address] [place] [id number] Scheduled Orders Name Type Priority Associated Diagnoses Orde r Schedule US PREG FOLLOW-UP EACH FETUS Medical Imaging Routine Class II obesity Expected: 05/21/2024 (Approximate), Expires: 06/07/2025 Health Maintenance Due Date Last Done Comments [...] antepartum- Primary Class II obesity Anxiety during Need for prophylactic vaccination with combined gruzqdqmlh-nyxzjxe-rgnozwmle (DTP) vaccine documented in this encounter
--- OUTSIDE RECORDS SUMMARY | 2024-07-17 04:18 | External Medical Summary | Summary of Care ---
Author Name Unknown Organization [facility] Address [address] [place] [address] Phone [phone] Care Team Providers Care Data Support Analyst Name Role Phone Unavailable Primary Care Provider Unavailabl e Reason for Visit * Reason Comments Outpatient Testing Encounter Details Date Type Department Care Team (Late st Contact Info) Description 05/07/2024 10:00 AM EDT Laboratory Laboratory, [facility] [address] [place] [id number] [facility] [address] [place] [address] Supervision of normal first , antepartum Allergies No known active allergiesdocumented as of [...] money to get more. Never true 02/25/2024 [place] Depression Scale Answer Date Recorded [place] Depression Scale Total 0 12/26/2023 The thought [...] on file documented as of this encounter Plan of Treatment Upcoming Encounters Date Type Department Care Team (Late st Contact Info) Description 05/22/2024 2:30 PM EDT Office Visit Gynecology/Obstetrics [facility] [address] [place] [address] Macrina Shields PA-C [address] [place] [address] 05/23/2024 3:30 PM EDT Imaging Radiology [address] [place] [address] Pending Results Name Type Priority Associated Diagnoses Date /Time SYPHILIS ANTIBODY SCREEN WITH REFLEX TO RPR Lab Routine Supervision of normal first , antepartum 05/07/2024 11:06 AM EDT CBC WITH WBC DIFFERENTIAL AND ANEMIA REFLEX WORKUP Lab Routine Supervision of normal first , antepartum 05/07/2024 11:06 AM EDT 50-G GESTATIONAL GLUCOSE, 1 HOUR Lab Routine Supervision of normal first , antepartum 05/07/2024 11:06 AM EDT SYPHILIS ANTIBODY SCREEN Lab Routine Supervision of normal first , antepartum 05/07/2024 11:06 AM EDT ANEMIA CBC Lab Routine Supervision of normal first , antepartum 05/07/2024 11:06 AM EDT DIFFERENTIAL, AUTOMATED Lab Routine Supervision of normal first , antepartum 05/07/2024 11:06 AM EDT ANEMIA REFLEX CHEMISTRY HOLD Lab Routine Supervision of normal first , antepartum 05/07/2024 11:06 AM EDT Health Maintenance Due Date Last Done Comments [...] Diagnoses Diagnosis Supervision of normal first , antepartum documented in this encounter
--- OUTSIDE RECORDS SUMMARY | 2024-07-17 04:19 | External Medical Summary | Summary of Care ---
Author Name Unknown Organization [facility] Address [address] [place] [address] Phone [phone] Care Team Providers Care Respiratory Manager Name Role Phone Unavailable Primary Care Provider Unavailabl e Encounter Details Date Type Department Care Team (Late st Contact Info) Description 11/12/2023 Telephone Pharmacy, [facility] [address] [place] [address] [place], [facility] [address] [facility] [place] [address] Allergies No known active allergiesdocumented as of this encounter (statuses as of 02/11/2024) Medications Medication Sig Dispensed Refills Start Date End Date Status busPIRone HCl 10 MG Oral Tablet (Buspar)Indications: GENEVA (generalized anxiety disorder) Take 1 Tablet by mouth in the morning and 1 Tablet before bedtime. 180 Tablet 1 10/01/2023 Active Sertraline HCl 100 MG Oral Tablet (Zoloft)Indications: GENEVA (generalized anxiety disorder) Take 1.5 Tablets by mouth in the morning. 145 Tablet 3 10/01/2023 Active documented as of this encounter (statuses as of 02/11/2024) Active Problems Problem Noted Date Diagnosed Date [...] Hyperlipidemia with target LDL less than 130 documented as of this encounter (statuses as of 02/11/2024) Resolved Problems Problem Noted Date Diagnosed Date Resolved Date HEMANGIOMA SKIN 2004 07/18/2022 Routine child health exam 2004 documented as of this encounter (statuses as of 02/11/2024) Immunizations Name Administration Dates Next Due COVID-19 mRNA, LNP-s, No Pre serve, 2-Dose Series (Moderna) 11/26/2021,06/13/2021,05/23/2021 DTaP Dipth/Tet/Acell Pertussis (Infanrix), Peds 11/17/2008,12/19/2005 H1N1 2009 Influenza, Intranasal 09/23/2009 HPV Vaccine, 9-Valent 06/21/2020,05/13/2020 Hep A - Hepatitis A (ped/ado le, 1-18 Yrs) 05/13/2020 IPV - Polio Virus Vaccine (Inact) [...] 08/30/2009 TDAP (age 10 and older)(Boostrix) 01/15/2017 Varicella Vaccine (Chicken Pox) 11/17/2008 documented as [...] the money to buy more. Never true 01/16/20 24 Within the past 12 months, t he food you bought just didn't last and you didn't have money to get more. Never true 01/16/2024 [place] Depression Scale Answer Date Recorded [place] Depression Scale Total 0 12/26/2023 The thought of harming myself has occurred to me . Never 12/26/2023 Sex and Gender Information Value Date Recorded [...] Care Team (Late st Contact Info) Description 02/20/2024 8:45 AM EDT Office Visit Gynecology/Ob[facility] [address] [place] [address] BackerBaylee CRNP [address] [place] [address] 03/10/2024 2:15 PM EDT Imaging Radiology [facility] 2nd Floor, [place] [address] [place] [address] 03/10/2024 3:45 PM EDT Office Visit Gynecology/Obstetrics [facility] [address] [place] [address] Dipika Elder, [address] [place] [address] Health Maintenance Due Date Last Done Comments GARDASIL-HPV IMMUNIZATION SERIES (3 - 3-dose series) 11/13/2020 06/21/2020, 05/13/2020 COVID-19 Vaccine ( - 2022-24 season) 2023 11/26/2021, 06/13/2021, 05/23/2021 Yearly Wellness Visit 07/18/2023 07/18/2022 , 05/13/2020, 01/15/2017, Additional history exists Depression Screening 10/01/2024 10/01/2023 Gonorrhea / Chlamydia Screen 12/26/2024, 07/18/2022, 05/14/2020 DTaP,Tdap,and Td Vaccines (7 - Td or Tdap) 01/15/2027 01/15/2017, 11/17/2008, 12/19/2005, Additional history exists Hepatitis B Completed 09/22/2005, 10/05, 2004, Additional history exists MENINGOCOCCAL (MENACTRA/MENVEO) Completed 06/21/2020, 01/15/2017 Influenza Vaccine (FLU shot) Completed 10/2023, 08/16/2023, 09/08/2022, Additional history exists Pneumococcal Vaccine: Pediatrics (0 to 5 Years) and At-Risk Patients (6 to 64 Years) Aged Out No longer eligible based on patient's age to complete this topic documented as of this encounter Medical Devices Not on filedocumented as of this encounter
--- OUTSIDE RECORDS SUMMARY | 2024-07-17 04:19 | External Medical Summary | Summary of Care ---
Author Name Unknown Organization [facility] Address [address] [place] [address] Phone [phone] Care Team Providers Care Engraved Roller Inspector Name Role Phone Unavailable Primary Care Provider Unavailabl e Reason for Visit * Reason Comments Return Visit Encounter Details Date Type Department Care Team (Late st Contact Info) Description 04/09/2024 9:30 AM EDT Office Visit Gynecology/Obstetric s Petersonleah Hinojosa [address] [place] [address] Tita Bassett CRNP [address] [place] [address] Supervision of normal first , antepartum*; Class II obesity; Anxiety during Allergies No known active allergiesdocumented as of this encounter (statuses as of 04/09/2024) Medications Medication Sig Dispensed Refills Start Date [...] as of this encounter (statuses as of 04/09/2024) Active Problems Problem Noted Date Diagnosed Date [...] as of this encounter (statuses as of 04/09/2024) Resolved Problems Problem Noted Date Diagnosed Date Resolved Date HEMANGIOMA SKIN 2004 07/18/2022 Routine child health exam 2004 documented as of this encounter (statuses as of 04/09/2024) Immunizations Name Administration Dates Next Due COVID-19 [...] money to get more. Never true 02/25/2024 [place] Depression Scale Answer Date Recorded [place] Depression Scale Total 0 12/26/2023 The thought of harming myself has occurred to me . Never 12/26/2023 Estimated Date of Delivery Comme nts Yes [...] Reading Time Taken Comments Blood Pressure 124/72 04/09/2024 9:27 AM EDT Pulse - - Temperature - - Respiratory Rate - - Oxygen Saturation - - Inhaled Oxygen Concentration - - Weight 109.8 kg (242 lb) 04/09/2024 9:27 AM EDT Height - - Body Mass Index - - documented in this encounter Progress Notes * Tita Bassett CRNP - 04/09/2024 9:50 AM EDT 24w2d Still with some nausea, zofran helps. Doesn't want refill today. Baby is active. Discussed BH contractions. No bleeding or LOF. Glucola, growth with next visit. KAPIL Swift * Maliha Blood MED ASSIST - 04/09/2024 9:27 AM EDT 24w2d No concerns Vaginal bleeding: no ROM: no movement: present Contractions: no Nausea: yes, taking Zofran Vomiting: no Headaches: no documented in this encounter Plan of Treatment Upcoming Encounters Date Type Department Care Team (Late st Contact Info) Description 04/23/2024 3:15 PM EDT Imaging Radiology [facility] [address] [place] [address] 05/07/2024 10:00 AM EDT Laboratory Laboratory, [facility] [place] [phone] [facility] [address] [facility] [place] [address] 05/07/2024 10:30 AM EDT Office Visit Gynecology/Obstetrics [facility] [address] [place] [address] Tita Bassett CRNP [address] [facility] [place] [address] Scheduled Orders Name Type Priority Associated Diagnoses Orde r Schedule SYPHILIS ANTIBODY SCREEN WITH REFLEX TO RPR Lab Routine Supervision of normal first , antepartum Expected: 05/07/2024 (Approximate), Expires: 04/09/2025 CBC WITH WBC DIFFERENTIAL AND ANEMIA REFLEX WORKUP Lab Routine Supervision of normal first , antepartum Expected: 05/07/2024 (Approximate), Expires: 04/09/2025 50-G GESTATIONAL GLUCOSE, 1 HOUR Lab Routine Supervision of normal first , antepartum Expected: 05/07/2024 (Approximate), Expires: 04/09/2025 US PREG FOLLOW-UP EACH FETUS Medical Imaging Routine Supervision of normal first , antepartum Class II obesity Expected: 04/23/2024 (Approximate), Expires: 05/09/2025 Health Maintenance Due Date Last Done Comments [...]
--- OUTSIDE RECORDS SUMMARY | 2024-07-17 04:19 | External Medical Summary | Summary of Care ---
Author Name Unknown Organization [facility] Address [address] [place] [address] Phone [phone] Care Team Providers Care Cardiac Surgeon Name Role Phone Unavailable Primary Care Provider Unavailabl e Encounter Details Date Type Department Care Team (Late st Contact Info) Description 03/27/2024 Telephone Gynecology/Obstetrics [facility] [address] [facility] [place] [address] [facility] [address] [place] [address] Allergies No known active allergiesdocumented as of this encounter (statuses as of 03/27/2024) Medications Medication Sig Dispensed Refills Start Date [...] as of this encounter (statuses as of 03/27/2024) Active Problems Problem Noted Date Diagnosed Date [...] as of this encounter (statuses as of 03/27/2024) Resolved Problems Problem Noted Date Diagnosed Date Resolved Date HEMANGIOMA SKIN 2004 07/18/2022 Routine child health exam 2004 documented as of this encounter (statuses as of 03/27/2024) Immunizations Name Administration Dates Next Due COVID-19 [...] money to get more. Never true 02/25/2024 [place] Depression Scale Answer Date Recorded [place] Depression Scale Total 0 12/26/2023 The thought [...] encounter Miscellaneous Notes * Telephone Encounter - Елена Monroe RN - 03/27/2024 11:46 AM EDT ----- Message from Dipika Elder sent at 03/27/2024 11:38 AM EDT ----- Please let patient know baby's spine and facial profile were seen on her recent ultrasound for missed anatomy. Thanks! Dipika Elder CNM documented in this encounter Plan of Treatment Upcoming Encounters Date Type Department Care Team (Late st Contact Info) Description 04/09/2024 9:30 AM EDT Office Visit Gynecology/Obstetrics Maria Ines Hinojosa [address] [place] [address] Tita Bassett CRNP [address] [place] [address] Health Maintenance Due Date Last Done Comments [...]
--- OUTSIDE RECORDS SUMMARY | 2024-07-17 04:19 | External Medical Summary | Summary of Care ---
Author Name Unknown Organization [facility] Address [address] [place] [address] Phone [phone] Care Team Providers Care Flatwork Folder Name Role Phone Unavailable Primary Care Provider Unavailabl e Reason for Visit * Reason Comments Return Visit Encounter Details Date Type Department Care Team (Late st Contact Info) Description 03/10/2024 3:45 PM EDT Office Visit Gynecology/Obstetric s [facility] 132 [facility] [place] [address] Dipika Elder, [facility] [address] [facility] [address] Supervision of normal first , antepartum*; Class II obesity; Anxiety during Allergies No known active allergiesdocumented as of this encounter (statuses as of 03/10/2024) Medications Medication Sig Dispensed Refills Start Date [...] 28-0.8 MG Oral Tablet Take by mouth. 0 Active Ondansetron HCl 4 MG Oral TabletIndications:Na usea and vomiting during Take 1 Tablet by mouth every 8 hours as needed for Nausea. 30 Tablet 3 01/23/2024 Active documented as of this encounter (statuses as of 03/10/2024) Active Problems Problem Noted Date Diagnosed Date [...] as of this encounter (statuses as of 03/10/2024) Resolved Problems Problem Noted Date Diagnosed Date Resolved Date HEMANGIOMA SKIN 2004 07/18/2022 Routine child health exam 2004 documented as of this encounter (statuses as of 03/10/2024) Immunizations Name Administration Dates Next Due COVID-19 [...] money to get more. Never true 02/25/2024 [place] Depression Scale Answer Date Recorded [place] Depression Scale Total 0 12/26/2023 The thought [...] Reading Time Taken Comments Blood Pressure 122/68 03/10/2024 3:45 PM EDT Pulse - - Temperature - - Respiratory Rate - - Oxygen Saturation - - Inhaled Oxygen Concentration - - Weight 107.9 kg (237 lb 12.8 oz) 03/10/2024 3:45 PM EDT Height - - Body Mass Index - - documented in this encounter Progress Notes * Dipika Elder CNM - 03/10/2024 4:09 PM EDT Dacia Velasco is a 18 year old female here for her routine OB appointment at 20w0d Her Estimated Date of Delivery: 07/28/24 REVIEW OF SYSTEMS: She affirms movement. Denies vaginal bleeding, LOF, contractions, N/V, headaches, vision changes, and RUQ pain. PHYSICAL EXAM: Filed Vitals: 03/10/24 1545 BP: 122/68 Weight: 107.9 kg (237 lb 12.8 oz) +FHT 140 bpm (per ultrasound) Fundal height: not assessed ASSESSMENT/PLAN: (E66.9) Class II obesity Plan: -Will start q4week growth US once anatomy scan is finished in 2 weeks -Weekly NSTs at 37 weeks (O99.340, F41.9) Anxiety during Plan: -Feels well on Zoloft and Buspar -Denies SI and HI (Z34.00) Supervision of normal first , antepartum (primary encounter diagnosis) Plan: - had anatomy US today, needs follow up in 2 weeks for missed anatomy - RTO in 2 weeks for US, 4 weeks for MILTON Dipika Elder CNM documented in this encounter Plan of Treatment Scheduled Orders Name Type Priority Associated Diagnoses Orde r Schedule US PREG LIMITED 1 OR MORE FETUSES Medical Imaging Routine Supervision of normal first , antepartum Expected: 03/24/2024 (Approximate), Expires: 04/10/2025 Health Maintenance Due Date Last Done Comments [...]
--- OUTSIDE RECORDS SUMMARY | 2024-07-17 04:19 | External Medical Summary ---
Author Name Unknown Address Unknown Organization [id number]:LABORATORY [facility] [place] - [address] [place] [address] Laboratory Report Ordering Provider Test Date Status PÉREZBRIDGER 05/07/2024 11:06:31 Final Observation Date Value Abnormality Reference (Units ) Status Iron 05/07/2024 11:06:31 35 33-151 (ug/dL) Final Iron-binding capacity 05/07/2024 11:06:31 447 Above high normal 250-425 (ug/dL) Final Transferrin Sat % 05/07/2024 11:06:31 8 Below low normal 15-55 (%) Final Performing Location LABORATORY [facility] [place] - [address] [place] [address]
--- OUTSIDE RECORDS SUMMARY | 2024-07-17 04:19 | External Medical Summary ---
Author Name Unknown Address Unknown Organization [id number]:[facility] [place] [facility] [address] [place] [address] Laboratory Report Ordering Provider Test Date Status BRIDGER ORTEZ 05/07/2024 11:06:31 Final Observation Date Value Abnormality Reference (Units ) Status Creatinine 05/07/2024 11:06:31 0.5 0.5-1.0 (mg/dL) Final Glomerular filtration rate/1.73 sq M.predicted [Volume Rate/Area] in Serum, Plasma or Blood by Creatinine-based formula (CKD-EPI) 05/07/2024 11:06:31 >90 >=60 (mL/min) Final eGFR is calculated based on the CKD-EPI 2020 equation Performing Location [facility] [place] [facility] [address] [place] [address]
--- OUTSIDE RECORDS SUMMARY | 2024-07-17 04:19 | External Medical Summary | Summary of Care ---
Author Name Unknown Organization [facility] Address [address] [place] [address] Phone [phone] Care Team Providers Care Plywood Factory Worker Name Role Phone Unavailable Primary Care Provider Unavailabl e Reason for Visit * Reason Comments Return Visit Encounter Details Date Type Department Care Team (Late st Contact Info) Description 02/20/2024 8:45 AM EDT Office Visit Gynecology/Obstetric s Maria Ines Hinojosa [address] [place] [address] Baylee Schaefer CRNP [address] [place] [address] Supervision of normal first , antepartum*; Class II obesity; Anxiety during Allergies No known active allergiesdocumented as of this encounter (statuses as of 02/20/2024) Medications Medication Sig Dispensed Refills Start Date [...] as of this encounter (statuses as of 02/20/2024) Active Problems Problem Noted Date Diagnosed Date [...] as of this encounter (statuses as of 02/20/2024) Resolved Problems Problem Noted Date Diagnosed Date Resolved Date HEMANGIOMA SKIN 2004 07/18/2022 Routine child health exam 2004 documented as of this encounter (statuses as of 02/20/2024) Immunizations Name Administration Dates Next Due COVID-19 [...] money to get more. Never true 01/16/2024 [place] Depression Scale Answer Date Recorded [place] Depression Scale Total 0 12/26/2023 The thought [...] Reading Time Taken Comments Blood Pressure 124/72 02/20/2024 8:37 AM EDT Pulse - - Temperature - - Respiratory Rate - - Oxygen Saturation - - Inhaled Oxygen Concentration - - Weight 108.4 kg (239 lb) 02/20/2024 8:37 AM EDT Height - - Body Mass Index - - documented in this encounter Progress Notes * Baylee Schaefer CRNP - 02/20/2024 8:39 AM EDT 17w2d No concerns. Feeling movement. No cramping/bleeding. Nausea getting better. Has anatomy scan scheduled with next visit. KAPIL Sandoval * Chely Carrillo LPN - 02/20/2024 8:38 AM EDT 17w2d Denies vaginal bleeding/rom + movement No new concerns documented in this encounter Plan of Treatment Upcoming Encounters Date Type Department Care Team (Late st Contact Info) Description 03/10/2024 2:00 PM EDT Imaging Radiology [facility] 2nd [facility] 132 [facility] [place] [address] 03/10/2024 3:45 PM EDT Office Visit Gynecology/Obstetrics [facility] [address] [facility] [place] [address] Dipika Elder [address] [place] [address] Scheduled Orders Name Type Priority Associated Diagnoses Orde r Schedule US PREG SINGLE/1ST GEST, 14 WEEKS OR LATER Medical Imaging Routine Supervision of normal first , antepartum Expected: 03/10/2024 (Approximate), Expires: 03/21/2025 Health Maintenance Due Date Last Done Comments [...]
--- OUTSIDE RECORDS SUMMARY | 2024-07-17 04:19 | External Medical Summary | Summary of Care ---
Author Name Unknown Organization [facility] Address [address] [place] [address] Phone [phone] Care Team Providers Care Sample Supervisor Name Role Phone Unavailable Primary Care Provider Unavailabl e Reason for Visit * Reason Comments Return Visit Encounter Details Date Type Department Care Team (Late st Contact Info) Description 01/23/2024 8:45 AM EDT Office Visit Gynecology/Obstetric s Maria Ines Hinojosa [address] [place] [id number] Baylee Schaefer CRNP [address] [place] [phone] Supervision of normal first , antepartum*; Class II obesity; Anxiety during ; Nausea and vomiting during Allergies No known active allergiesdocumented as of this encounter (statuses as of 01/23/2024) Medications Medication Sig Dispensed Refills Start Date End Date Status busPIRone HCl 10 MG Oral Tablet (Buspar)Indicatio [...] 0 Active Ondansetron HCl 4 MG Oral TabletIndications :Nausea and vomiting during Take 1 Tablet by mouth every 8 hours as needed for Nausea. 30 Tablet 3 01/23/2024 Active Ondansetron HCl 4 MG Oral Tablet Take 1 Tablet by mouth every 8 hours as needed for Nausea. 30 Tablet 1 12/25/2023 01/23/2024 Discontinued (Refill) documented as of this encounter (statuses as of 01/23/2024) Active Problems Problem Noted Date Diagnosed Date [...] as of this encounter (statuses as of 01/23/2024) Resolved Problems Problem Noted Date Diagnosed Date Resolved Date HEMANGIOMA SKIN 2004 07/18/2022 Routine child health exam 2004 documented as of this encounter (statuses as of 01/23/2024) Immunizations Name Administration Dates Next Due COVID-19 [...] money to get more. Never true 01/16/2024 [place] Depression Scale Answer Date Recorded [place] Depression Scale Total 0 12/26/2023 The thought [...] Sign Reading Time Taken Comments Blood Pressure 122/70 01/23/2024 8:45 AM EDT Pulse - - Temperature - - Respiratory Rate - - Oxygen Saturation - - Inhaled Oxygen Concentration - - Weight 105.7 kg (233 lb) 01/23/2024 8:45 AM EDT Height - - Body Mass Index - - documented in this encounter Patient Instructions * Patient Instructions* Baylee Schaefer CRNP - 01/23/2024 8:50 AM EDT For nausea/vomiting in : Vitamin B6 (10-25 mg) three times a day Doxylamine (Unisom) 25 mg at bedtime ?Eat as soon as you feel hungry, or even before you feel hungry ?Snack often and eat small meals - The best foods to eat have lots of protein or carbohydrates, butnot a lot of fat. Good choices are crackers, bread, and low- fat yogurt. You should also avoid spicyfoods. ?Drink cold, clear beverages that are either fizzy or sour - Good choices are lemonade and dalton evan. ?Eat dal[place]-flavored lollipops ?Smell fresh lemon, mint, or orange ?[place] your teeth right after you eat ?Do not lie down right after you eat ?Take your vitamins at bedtime with a snack, not in the morning ?Avoid things that make you feel nauseous - That might include stuffy rooms, strong smells, hot places, loud noises, or not sleeping enough. Try to figure out if some foods and drinks stay down better than others. Avoid foods and drinks that seem to make you feel sick. This is different for different people. Should I see a doctor or nurse? -- See your doctor or nurse right away if you: ?Throw up every day or throw up over and over during the day. This is even more of a concern if there is blood in your vomit. ?Are losing weight ?Have pain or cramps in your belly ?Think you have lost too many fluids. This is called dehydration. Signs include not urinatingvery much, having dark yellow urine, or feeling dizzy when you stand up. If you cant keep anything down, you might need to be given fluids through a tube that is put into one of your veins, called an IV. Plus, you might need to get a medicine to prevent nausea and vomiting. documented in this encounter Progress Notes * Baylee Schaefer CRNP - 01/23/2024 8:47 AM EDT 13w2d No cramping/bleeding. Still w/nausea and vomiting, requests Zofran refills. This works well, able to tolerate fluids/food when taking it. Declines genetic screening. Completed early glucose screening. 4 week return KAPIL Sandoval * Chely Carrillo LPN - 01/23/2024 8:46 AM EDT 13w2d Denies vaginal bleeding/rom Absent movement Requesting refills of Zofran- still having a lot of N&V documented in this encounter Plan of Treatment Upcoming Encounters Date Type Department Care Team (Late st Contact Info) Description 02/20/2024 8:45 AM EDT Office Visit Gynecology/Obstetrics [facility] [address] [place] [phone] Baylee Schaefer CRNP [address] [place] [phone] 03/10/2024 2:15 PM EDT [facility] [address] [place] [address] 03/10/2024 3:45 PM EDT Office Visit Gynecology/Obstetrics [facility] [address] [place] [phone] Dipika Elder, [facility] [address] [place] [id number] Health Maintenance Due Date Last Done Comments GARDASIL-HPV IMMUNIZATION SERIES (3 - 3-dose series) 11/13/2020 06/21/2020, 05/13/2020 COVID-19 Vaccine (24 season) 2023 11/26/2021, 06/13/2021, 05/23/2021 Yearly Wellness [...] antepartum- Primary Class II obesity Anxiety during Nausea and vomiting during documented in this encounter
--- OUTSIDE RECORDS SUMMARY | 2024-07-17 04:19 | External Medical Summary ---
Author Name Unknown Address Unknown Organization [id number]:[facility]ORY [facility] - [address] [facility] [place] [address] Laboratory Report Ordering Provider Test Date Status BRIDGER ORTEZ 05/07/2024 11:06:31 Final Observation Date Value Abnormality Reference (Units ) Status WBC, Total 05/07/2024 11:06:31 11.26 Above high normal 4 .00-10.80 (K/uL) Final RBC 05/07/2024 11:06:31 4.10 3.85-5.15 (M/uL) Final Hemoglobin 05/07/2024 11:06:31 11.7 Below low normal 12 .0-15.3 (g/dL) Final Anemia reflex testing trigge rs on a HGB < 12.0 for Females and HGB < 13.0 for Males in accordance with the WHO Anemia Guidelines
Anemia reflex testing triggers on a HGB < 12.0 for Females and HGB < 13.0 for Males in accordance with the WHO Anemia Guidelines HCT 05/07/2024 11:06:31 36.6 36.0-45.2 (%) Final MCV 05/07/2024 11:06:31 89.3 81.5-97.5 (fL) Final MCH 05/07/2024 11:06:31 28.5 27.0-34.0 (pg) Final MCHC 05/07/2024 11:06:31 32.0 32.0-36.0 (g/dL) Final RDW 05/07/2024 11:06:31 13.1 11.5-15.5 (%) Final Platelets 05/07/2024 11:06:31 296 140-400 (K /uL) Final MPV 05/07/2024 11:06:31 10.9 6.6-11.1 ( fL) Final Nucleated erythrocytes/100 leukocytes [Ratio] in Blood by Automated count 05/07/2024 11:06:31 0 <=0 (/100 WBCs) [facility] Performing Location LABORATORY [facility] - [address] [facility] [address]
--- OUTSIDE RECORDS SUMMARY | 2024-07-17 04:19 | External Medical Summary ---
Author Name Unknown Address Unknown Organization K01:[facility]AT[facility] - [address] [place] [address] Laboratory Report Ordering Provider Test Date Status BRIDGER ORTEZ 05/07/2024 11:06:31 Final Observation Date Value Abnormality Reference (Units ) Status Ferritin 05/07/2024 11:06:31 11 Below low normal 13- 150 (ng/mL) Final Performing Location LAB[facility]ATORY [facility] - [address] [place] [address]
[2024-07-17] MEDS: ACETAMINOPHEN 325 MG TAB PO SCH (05:08)
[2024-07-17] MEDS: IBUPROFEN 600 MG TAB PO SCH (06:02)
[2024-07-17] MEDS: PRENATAL VITAMIN 1 TAB PO SCH (07:36)
[2024-07-17] MEDS: DOCUSATE SODIUM 100 MG CAP PO SCH (07:37)
[2024-07-17] MEDS: FERROUS SULFATE 325 MG TAB PO SCH (07:38)
[2024-07-17] MEDS: SIMETHICONE 80 MG CHEW PO SCH (07:39)
--- NOTE | 2024-07-17 09:51 | Obstetrical Progress Note ---
Date of Service July 17, 2024 Subjective Ambulation: ambulating normally Voiding: no voiding problems Passing Gas:: No Diet Tolerance:: regular diet Feeding Type:: breast feeding doing well. OOB OK. Physical Exam Constitutional WD/WN, vitals as above Gastrointestinal (Abdomen) Inspection/Auscultation: abdomen normal to inspection incision c/d/i. abdomen soft and non-tender. fundus firm below U. Musculoskeletal Extremities: extremities normal to inspection Skin no rashes, warm and dry Neurologic patellar DTR's 2+ bilat, sensation intact Psychiatric A+Ox3, euthymic affect Results & Data Vital Signs (Past 12 Hours) Vital Signs Temp Pulse Pulse Resp BP BP Pulse Ox 07/17/24 07:45 36.7 C 87 16 120/84 97 07/17/24 07:30 16 97 07/17/24 06:00 22 98 07/17/24 05:05 16 97 07/17/24 04:00 18 98 07/17/24 03:15 20 98 07/17/24 02:45 18 100 07/17/24 02:45 36.4 C L 77 18 131/90 100 07/17/24 02:05 36.7 C 18 07/17/24 02:05 84 98 07/17/24 02:00 76 99 07/17/24 01:55 74 98 07/17/24 01:52 70 127/82 07/17/24 01:50 69 98 07/17/24 01:45 73 98 07/17/24 01:42 82 129/92 07/17/24 01:40 80 98 07/17/24 01:35 36.7 C 18 99 07/17/24 01:35 72 98 07/17/24 01:32 72 129/91 07/17/24 01:30 73 98 07/17/24 01:25 81 99 07/17/24 01:22 67 128/89 07/17/24 01:20 74 100 07/17/24 01:15 74 98 07/17/24 01:12 68 133/94 07/17/24 01:11 81 88 L 07/17/24 01:10 72 100 07/17/24 01:05 36.6 C 18 99 07/17/24 01:05 36.6 C 16 99 07/17/24 01:05 91 07/17/24 01:05 79 09/12/24 01:05 75 99 07/17/24 01:02 71 134/90 07/17/24 01:00 70 95 07/17/24 00:56 87 93 07/17/24 00:55 18 100 07/17/24 00:55 84 99 07/17/24 00:52 72 125/89 07/17/24 00:50 72 98 07/17/24 00:45 18 99 07/17/24 00:45 73 99 07/17/24 00:42 75 129/90 07/17/24 00:40 86 98 07/17/24 00:35 36.5 C 18 07/17/24 00:35 68 100 07/17/24 00:32 71 119/79 07/17/24 00:30 74 99 07/17/24 00:25 36.5 C 16 99 07/17/24 00:25 86 99 07/17/24 00:23 86 92 07/17/24 00:20 82 99 07/17/24 00:15 18 98 07/17/24 00:15 84 100 07/17/24 00:10 94 07/17/24 00:10 72 07/17/24 00:10 68 99 07/17/24 00:05 36.5 C 18 99 07/17/24 00:05 79 99 07/17/24 00:02 85 123/75 07/16/24 22:35 96 H 07/16/24 22:35 164/102 H 07/16/24 22:06 18 07/16/24 22:06 36.8 C 18 07/16/24 22:02 91 H 07/16/24 22:02 143/96 H 07/16/24 21:53 88 07/16/24 21:53 152/93 H O2 Del Method 07/17/24 07:45 Room Air 07/17/24 07:30 07/17/24 06:00 07/17/24 05:05 07/17/24 04:00 07/17/24 03:15 07/17/24 02:45 07/17/24 02:45 Room Air 07/17/24 02:05 07/17/24 02:05 07/17/24 02:00 07/17/24 01:55 07/17/24 01:52 07/17/24 01:50 07/17/24 01:45 07/17/24 01:42 07/17/24 01:40 07/17/24 01:35 Room Air 07/17/24 01:35 07/17/24 01:32 07/17/24 01:30 07/17/24 01:25 07/17/24 01:22 07/17/24 01:20 07/17/24 01:07/17/24 01:07/17/24 01:07/17/24 01:07/17/24 01:05 Room Air 07/17/24 01:05 Room Air 07/17/24 01:05 07/17/24 01:05 07/17/24 01:05 07/17/24 01:02 07/17/24 01:00 07/17/24 00:56 07/17/24 00:55 Room Air 07/17/24 00:55 07/17/24 00:52 07/17/24 00:50 07/17/24 00:45 Room Air 07/17/24 00:45 07/17/24 00:42 07/17/24 00:40 07/17/24 00:35 07/17/24 00:35 07/17/24 00:32 07/17/24 00:30 07/17/24 00:25 Room Air 07/17/24 00:25 07/17/24 00:23 07/17/24 00:20 07/17/24 00:15 Room Air 07/17/24 00:15 07/17/24 00:07/17/24 00:07/17/24 00:07/17/24 00:05 Room Air 07/17/24 00:05 07/17/24 00:02 07/16/24 22:35 07/16/24 22:35 07/16/24 22:06 07/16/24 22:06 07/16/24 22:02 07/16/24 22:02 07/16/24 21:53 07/16/24 21:53 Laboratory Results 07/16/24 07/16/24 19:17 Unknown WBC 8.51 RBC 4.02 L Hgb 11.0 L Hct 33.2 L MCV 82.6 MCH 27.4 MCHC 33.1 RDW Std Deviation 40.5 RDW Coeff of Naif 13.5 Plt Count 223 MPV 12.1 Immature Gran % (Auto) 0.4 Neut % (Auto) 71.9 Lymph % (Auto) 18.7 [place] % (Auto) 8.1 Eos % (Auto) 0.7 Baso % (Auto) 0.2 Neut # (Auto) 6.12 Lymph # (Auto) 1.59 [place] # (Auto) 0.69 H Eos # (Auto) 0.06 Baso # (Auto) 0.02 Immature Gran # (Auto) 0.03 Sodium 135 L Potassium 3.7 Chloride 106 Carbon Dioxide 19 L Anion Gap 10 BUN 6 Creatinine 0.50 L Est Cr Clr Drug Dosing 235.8 Est GFR ( Amer) > 150.0 Est GFR (Non-Af Amer) 139.3 BUN/Creatinine Ratio 12.0 Glucose 71 Calcium 8.6 Total Bilirubin 0.4 AST 29 ALT 33 Alkaline Phosphatase 198 H Total Protein 6.5 Albumin 3.2 L Globulin 3.3 Albumin/Globulin Ratio 1.0 Urine Color Dark Yellow Urine Appearance Cloudy A Urine pH 6.0 Ur Specific [place] 1.028 Urine Protein Trace H Urine Glucose (UA) Negative Urine Ketones Trace H Urine Blood Negative Urine Nitrite Negative Urine Bilirubin Negative Urine Urobilinogen Positive H Ur Leukocyte Esterase 1+ H Urine WBC (Auto) 21-50 H Urine RBC (Auto) 0-2 U Hyaline Cast (Auto) 3-5 H U Epithel Cells (Auto) 6-10 H Urine Bacteria (Auto) 4+ H Urine Mucus Present A Ur Random Creatinine 200.7 U Random Total Protein 28.9 H Protein/Creatinin Ratio 0.1 Treponema pallidum Ab Negative Blood Type O Positive Antibody Screen NEGATIVE
[2024-07-17] MEDS: SERTRALINE HCL 50 MG TABLET PO SCH (10:07)
[2024-07-17] MEDS: busPIRone 5 MG TAB PO SCH (10:08)
[2024-07-17] MEDS ORDERED: ONDANSETRON INJ 2 MG/ML 2 ML VIAL IV PRN (16:37)
[2024-07-17] MEDS ORDERED: PROMETHAZINE 12.5 MG/50.5 ML BAG IV PRN (16:37)
[2024-07-17] MEDS ORDERED: diphenhydrAMINE Capsule 25 MG CAP PO PRN (16:37)
[2024-07-17] MEDS ORDERED: HYDROmorphone INJ 0.5 MG/0.5 ML SYR IV PRN (16:37)
[2024-07-18 06:37] LABS: Basophils # (auto) 0.03 K/uL (0.00-0.20); Basophils % (auto) 0.4 %; Eosinophils # (auto) 0.12 K/uL (0.00-0.50); Eosinophils % (auto) 1.5 %; Hematocrit (blood only) 27.2 % (37.0-47.0); Hemoglobin 8.9 g/dl (12.0-16.0); Immature Granulocytes # (auto) 0.06 K/uL (0.01-0.20); Immature Granulocytes % (auto) 0.8 %; Lymphocytes # (auto) 1.48 K/uL (1.20-3.40); Lymphocytes % (auto) 18.7 %; Mean Corpuscular Hemoglobin 27.4 pg (25.0-34.0); Mean Corpuscular Hgb Conc 32.7 g/dL (32.0-36.0); Mean Corpuscular Volume 83.7 fL (80.0-100.0); Mean Platelet Volume 11.6 fL (9.4-12.4); Monocytes # (auto) 0.66 K/uL (0.11-0.59); Monocytes % (auto) 8.3 %; Neutrophils # (auto) 5.56 K/uL (1.40-6.50); Neutrophils % (auto) 70.3 %; Platelet Count 169 K/uL (130-400); RDW Coefficient of Variation 13.6 % (11.5-14.5); RDW Standard Deviation 41.9 fL (36.4-46.3); Red Blood Count 3.25 M/uL (4.20-5.40); White Blood Count 7.91 K/ul (4.8-10.8)
[2024-07-18] MEDS: oxyCODONE HCL IR 5 MG TAB (IMMEDIATE RELEASE) PO PRN (08:46)
--- NOTE | 2024-07-18 09:20 | Obstetrical Progress Note ---
Date of Service July 18, 2024 Assessment & Plan Admission and Anticipated Discharge Date Admission Date: July 16, 2024 Subjective Patient is seen and examined. She feels well, no complaints. Pain is under control with oral meds. Ambulating without dizziness Voiding without difficulty Tolerating regular diet with out N&V Flatus + BM neg Bleeding is minimal No HALEY/ Change in vision/fever/ chills/ CP/ SOB/ N&V/ Leg pain Breast and bottle feeding without problems Vital Signs Temp Pulse Resp BP Pulse Ox O2 Del Method 07/18/24 07:40 36.4 C L 80 16 128/87 99 Room Air 07/18/24 00:01 36.7 C 90 18 118/82 98 Room Air 07/17/24 20:42 36.5 C 89 16 118/82 97 Room Air 07/17/24 16:27 16 96 07/17/24 15:50 36.7 C 85 16 108/72 95 Room Air 07/17/24 15:30 16 97 07/17/24 14:30 16 96 07/17/24 13:30 16 97 07/17/24 12:30 16 96 07/17/24 11:30 16 96 07/17/24 11:20 36.7 C 82 18 108/71 95 Room Air 07/17/24 10:30 16 98 07/17/24 09:30 18 98 Lab Results 07/16/24 07/16/24 07/18/24 Range/Units 19:17 Unknown 06:12 WBC 8.51 7.91 (4.8-10.8) K/ul RBC 4.02 L 3.25 L (4.20-5.40) M/uL Hgb 11.0 L 8.9 L (12.0-16.0) g/dl Hct 33.2 L 27.2 L (37.0-47.0) % MCV 82.6 83.7 (80.0-100.0) fL MCH 27.4 27.4 (25.0-34.0) pg MCHC 33.1 32.7 (32.0-36.0) g/dL RDW Std Deviation 40.5 41.9 (36.4-46.3) fL RDW Coeff of Naif 13.5 13.6 (11.5-14.5) % Plt Count 223 169 (130-400) K/uL MPV 12.1 11.6 (9.4-12.4) fL Immature Gran % (Auto) 0.4 0.8 % Neut % (Auto) 71.9 70.3 % Lymph % (Auto) 18.7 18.7 % [place] % (Auto) 8.1 8.3 % Eos % (Auto) 0.7 1.5 % Baso % (Auto) 0.2 0.4 % Neut # (Auto) 6.12 5.56 (1.40-6.50) K/uL Lymph # (Auto) 1.59 1.48 (1.20-3.40) K/uL [place] # (Auto) 0.69 H 0.66 H (0.11-0.59) K/uL Eos # (Auto) 0.06 0.12 (0.00-0.50) K/uL Baso # (Auto) 0.02 0.03 (0.00-0.20) K/uL Immature Gran # (Auto) 0.03 0.06 (0.01-0.20) K/uL Sodium 135 L (136-145) mmol/L Potassium 3.7 (3.5-5.1) mmol/L Chloride 106 (98-107) mmol/L Carbon Dioxide 19 L (21-32) mmol/L Anion Gap 10 (3-11) BUN 6 (6-23) mg/dl Creatinine 0.50 L (0.6-1.2) mg/dl Est Cr Clr Drug Dosing 235.8 ml/min Est GFR ( Amer) > 150.0 ml/min Est GFR (Non-Af Amer) 139.3 ml/min BUN/Creatinine Ratio 12.0 (10-20) Glucose 71 (70-99(Fasting)) mg/dl Calcium 8.6 (8.6-10.3) mg/dl Total Bilirubin 0.4 (0.2-1.0) mg/dl AST 29 (13-39) U/L ALT 33 (7-52) U/L Alkaline Phosphatase 198 H (34-104) U/L Total Protein 6.5 (6.0-8.3) gm/dl Albumin 3.2 L (3.4-5.0) gm/dl Globulin 3.3 (2.5-4.0) gm/dl Albumin/Globulin Ratio 1.0 (0.9-2) Urine Color Dark Yellow Urine Appearance Cloudy A (Clear) Urine pH 6.0 (4.5-7.5) Ur Specific [place] 1.028 (1.000-1.030) Urine Protein Trace H (Negative) Urine Glucose (UA) Negative (Negative) Urine Ketones Trace H (Negative) Urine Blood Negative (Negative) Urine Nitrite Negative (Negative) Urine Bilirubin Negative (Negative) Urine Urobilinogen Positive H (Negative) Ur Leukocyte Esterase 1+ H (Negative) Urine WBC (Auto) 21-50 H (0-5) /hpf Urine RBC (Auto) 0-2 (0-2) /hpf U Hyaline Cast (Auto) 3-5 H (0-2) /lpf U Epithel Cells (Auto) 6-10 H (0-2) /hpf Urine Bacteria (Auto) 4+ H (None Seen) Urine Mucus Present A (None Prsent) Ur Random Creatinine 200.7 mg/dl U Random Total Protein 28.9 H (0-11.9) mg/dl Protein/Creatinin Ratio 0.1 (0-0.2) Treponema pallidum Ab Negative (Negative) Blood Type O Positive Antibody Screen NEGATIVE PE: General: Alert, orientedx3, NAD CVS: S1S2 RRR Lungs; CTAB Abd: soft, NT, ND, BS+, fundus firm, below Umbilicus Incision/ Dressing: Clean, dry, intact Perineum intact, Lochia rubra minimal Ext; NT, no edema AP: 19 yo s/p C Section, pod# 1 VSS Afebrile doing well Anemic, will give IV Iron Continue routine postop care Encourage ambulation, PO intake All questions were answered D/C home tomorrow Results & Data Vital Signs (Past 12 Hours) Vital Signs Temp Pulse Resp BP Pulse Ox O2 Del Method 07/18/24 07:40 36.4 C L 80 16 128/87 99 Room Air 07/18/24 00:01 36.7 C 90 18 118/82 98 Room Air
[2024-07-18] MEDS: MAGNESIUM HYDROXIDE SUSP 30 ML UDC PO STA (09:28)
[2024-07-18] MEDS: IRON SUCROSE 200 MG in 0.9 % SODIUM CHLORIDE 100 ML IV ONE (09:28)
[2024-07-18] MEDS: bisacodyL 5 MG TABEC PO SCH (14:18)
[2024-07-18 17:13] VITALS: O2SAT 97
[2024-07-18] MEDS: MEASLES, MUMPS & RUBELLA VIRUS VACCINE (MMR) 0.5ML VIAL SQ ONE (19:39)
[2024-07-18] MEDS ORDERED: bisacodyL 5 MG TABEC PO SCH (20:00)
[2024-07-19] MEDS ORDERED: bisacodyL 10 MG SUPP PR PRN (00:04)
[2024-07-19] MEDS: ACETAMINOPHEN 325 MG TAB PO PRN (06:38)
[2024-07-19] MEDS: IBUPROFEN 600 MG TAB PO PRN (06:38)
[2024-07-19 07:21] LABS: Hematocrit (blood only) 28.7 % (37.0-47.0); Hemoglobin 9.2 g/dl (12.0-16.0)
[2024-07-19 09:12] VITALS: BP 133/91; PULSE 102; TEMP 97.7
--- NOTE | 2024-07-19 09:28 | Obstetrical Progress Note ---
Date of Service July 19, 2024 Assessment & Plan Admission and Anticipated Discharge Date Admission Date: July 16, 2024 Subjective Patient is seen and examined. She feels well, no complaints. Pain is under control with oral meds. Ambulating without dizziness Voiding without difficulty Tolerating regular diet with out N&V Flatus + BM + Bleeding is minimal No fever/ chills/ CP/ SOB/ N&V/ Leg pain Bottle feeding without problems Vital Signs Temp Pulse Resp BP Pulse Ox O2 Del Method 07/19/24 07:45 36.5 C 102 H 18 133/91 97 Room Air 07/19/24 00:36 36.7 C 93 H 18 122/85 07/18/24 15:40 Room Air 07/18/24 15:40 36.5 C 95 H 18 119/86 97 Room Air Lab Results 07/16/24 07/16/24 07/18/24 Range/Units 19:17 Unknown 06:12 WBC 8.51 7.91 (4.8-10.8) K/ul RBC 4.02 L 3.25 L (4.20-5.40) M/uL Hgb 11.0 L 8.9 L (12.0-16.0) g/dl Hct 33.2 L 27.2 L (37.0-47.0) % MCV 82.6 83.7 (80.0-100.0) fL MCH 27.4 27.4 (25.0-34.0) pg MCHC 33.1 32.7 (32.0-36.0) g/dL RDW Std Deviation 40.5 41.9 (36.4-46.3) fL RDW Coeff of Naif 13.5 13.6 (11.5-14.5) % Plt Count 223 169 (130-400) K/uL MPV 12.1 11.6 (9.4-12.4) fL Immature Gran % (Auto) 0.4 0.8 % Neut % (Auto) 71.9 70.3 % Lymph % (Auto) 18.7 18.7 % [place] % (Auto) 8.1 8.3 % Eos % (Auto) 0.7 1.5 % Baso % (Auto) 0.2 0.4 % Neut # (Auto) 6.12 5.56 (1.40-6.50) K/uL Lymph # (Auto) 1.59 1.48 (1.20-3.40) K/uL [place] # (Auto) 0.69 H 0.66 H (0.11-0.59) K/uL Eos # (Auto) 0.06 0.12 (0.00-0.50) K/uL Baso # (Auto) 0.02 0.03 (0.00-0.20) K/uL Immature Gran # (Auto) 0.03 0.06 (0.01-0.20) K/uL Sodium 135 L (136-145) mmol/L Potassium 3.7 (3.5-5.1) mmol/L Chloride 106 (98-107) mmol/L Carbon Dioxide 19 L (21-32) mmol/L Anion Gap 10 (3-11) BUN 6 (6-23) mg/dl Creatinine 0.50 L (0.6-1.2) mg/dl Est Cr Clr Drug Dosing 235.8 ml/min Est GFR ( Amer) > 150.0 ml/min Est GFR (Non-Af Amer) 139.3 ml/min BUN/Creatinine Ratio 12.0 (10-20) Glucose 71 (70-99(Fasting)) mg/dl Calcium 8.6 (8.6-10.3) mg/dl Total Bilirubin 0.4 (0.2-1.0) mg/dl AST 29 (13-39) U/L ALT 33 (7-52) U/L Alkaline Phosphatase 198 H (34-104) U/L Total Protein 6.5 (6.0-8.3) gm/dl Albumin 3.2 L (3.4-5.0) gm/dl Globulin 3.3 (2.5-4.0) gm/dl Albumin/Globulin Ratio 1.0 (0.9-2) Urine Color Dark Yellow Urine Appearance Cloudy A (Clear) Urine pH 6.0 (4.5-7.5) Ur Specific [place] 1.028 (1.000-1.030) Urine Protein Trace H (Negative) Urine Glucose (UA) Negative (Negative) Urine Ketones Trace H (Negative) Urine Blood Negative (Negative) Urine Nitrite Negative (Negative) Urine Bilirubin Negative (Negative) Urine Urobilinogen Positive H (Negative) Ur Leukocyte Esterase 1+ H (Negative) Urine WBC (Auto) 21-50 H (0-5) /hpf Urine RBC (Auto) 0-2 (0-2) /hpf U Hyaline Cast (Auto) 3-5 H (0-2) /lpf U Epithel Cells (Auto) 6-10 H (0-2) /hpf Urine Bacteria (Auto) 4+ H (None Seen) Urine Mucus Present A (None Prsent) Ur Random Creatinine 200.7 mg/dl U Random Total Protein 28.9 H (0-11.9) mg/dl Protein/Creatinin Ratio 0.1 (0-0.2) Treponema pallidum Ab Negative (Negative) Blood Type O Positive Antibody Screen NEGATIVE 07/19/24 Range/Units 06:37 WBC (4.8-10.8) K/ul RBC (4.20-5.40) M/uL Hgb 9.2 L (12.0-16.0) g/dl Hct 28.7 L (37.0-47.0) % MCV (80.0-100.0) fL MCH (25.0-34.0) pg MCHC (32.0-36.0) g/dL RDW Std Deviation (36.4-46.3) fL RDW Coeff of Naif (11.5-14.5) % Plt Count (130-400) K/uL MPV (9.4-12.4) fL Immature Gran % (Auto) % Neut % (Auto) % Lymph % (Auto) % [place] % (Auto) % Eos % (Auto) % Baso % (Auto) % Neut # (Auto) (1.40-6.50) K/uL Lymph # (Auto) (1.20-3.40) K/uL [place] # (Auto) (0.11-0.59) K/uL Eos # (Auto) (0.00-0.50) K/uL Baso # (Auto) (0.00-0.20) K/uL Immature Gran # (Auto) (0.01-0.20) K/uL Sodium (136-145) mmol/L Potassium (3.5-5.1) mmol/L Chloride (98-107) mmol/L Carbon Dioxide (21-32) mmol/L Anion Gap (3-11) BUN (6-23) mg/dl Creatinine (0.6-1.2) mg/dl Est Cr Clr Drug Dosing ml/min Est GFR ( Amer) ml/min Est GFR (Non-Af Amer) ml/min BUN/Creatinine Ratio (10-20) Glucose (70-99(Fasting)) mg/dl Calcium (8.6-10.3) mg/dl Total Bilirubin (0.2-1.0) mg/dl AST (13-39) U/L ALT (7-52) U/L Alkaline Phosphatase (34-104) U/L Total Protein (6.0-8.3) gm/dl Albumin (3.4-5.0) gm/dl Globulin (2.5-4.0) gm/dl Albumin/Globulin Ratio (0.9-2) Urine Color Urine Appearance (Clear) Urine pH (4.5-7.5) Ur Specific [place] (1.000-1.030) Urine Protein (Negative) Urine Glucose (UA) (Negative) Urine Ketones (Negative) Urine Blood (Negative) Urine Nitrite (Negative) Urine Bilirubin (Negative) Urine Urobilinogen (Negative) Ur Leukocyte Esterase (Negative) Urine WBC (Auto) (0-5) /hpf Urine RBC (Auto) (0-2) /hpf U Hyaline Cast (Auto) (0-2) /lpf U Epithel Cells (Auto) (0-2) /hpf Urine Bacteria (Auto) (None Seen) Urine Mucus (None Prsent) Ur Random Creatinine mg/dl U Random Total Protein (0-11.9) mg/dl Protein/Creatinin Ratio (0-0.2) Treponema pallidum Ab (Negative) Blood Type Antibody Screen PE: General: Alert, orientedx3, NAD CVS: S1S2 RRR Lungs; CTAB Abd: soft, NT, ND, BS+, fundus firm, below Umbilicus Incision/Dressing: Clean, dry, intact Perineum intact, Lochia rubra minimal Ext; NT, no edema AP: 19 yo s/p C Section, pod# 3 VSS Afebrile doing well Continue routine postop care Encourage ambulation, PO intake All questions were answered D/C home , f/u in office Results & Data Vital Signs (Past 12 Hours) Vital Signs Temp Pulse Resp BP Pulse Ox O2 Del Method 07/19/24 07:45 36.5 C 102 H 18 133/91 97 Room Air 07/19/24 00:36 36.7 C 93 H 18 122/85
[2024-07-19 09:48] VITALS: RESP 16
--- NOTE | 2024-07-22 11:39 | Discharge Summary ---
Date of Service July 22, 2024 Admission HPI Per Admitting Provider Patient is a 19 yo at 38.2 wks who has been feeling HALEY and starts in her vision, on and off since yesterday She was in [employer] yesterday and took her BP there it was over 150/90, not sure exactly She went to work ( [facility] office ) where nurses took her BP and 148/93, trace protein in urine She had HALEY at noon and then resolve, now she has another one, 4-5/10, on right [employer]. She does not need pain meds No N&V/ epig or RUQ pain No ctxs/ LOF/VB +FM's Discharge Data Consultations 07/16/24 21:21 Consult Anesthesiology Stat Procedures Performed Operation Date: 07/16/24 22:30 Actual Procedures p Section in for the live of a female child at 2314(Bilateral) - Renetta Constantino MD Hospital Course (1) Headache in : (2) Gestational [-induced] hypertension without significant proteinuria, complicating childbirth: Patient is a 19-year-old G1, P0 at 38 weeks and 5 days of gestation who presents to labor and delivery with persistent headaches and elevated blood pressures. Upon admission her labs were within normal limits and her blood pressures were persistently elevated. Due to the findings decision was made to proceed with delivery on the day of admission. Bedside ultrasound revealed a breech presentation and decision was was made to proceed with primary . She was taken to the OR and delivered a viable infant in breech presentation without complications. See dictated op note for details. On postop recovery patient was doing well, vital signs stable afebrile, urine output was adequate, bleeding was minimal. On postop day #1 patient was doing well, vital signs stable afebrile ambulating, tolerating regular diet passing gas, physical exam was unremarkable, incision was clean dry intact and bleeding was minimal. On postop #2 patient was doing well vital signs stable afebrile ambulating, tolerating regular diet and she desired to be discharged on postop #2. Discharge instructions were given, prescriptions were written for pain, she is to be seen in office in a week for incision check. All questions were answered. (3) Breech presentation at :
== END 2024-07-19 12:40 | disposition home health service (06) | DRG 788 ==
LOC: OPB 18:10 → 4S1 18:12 → 4E2 07-17 02:39
DX: O99.02 Anemia complicating childbirth; F32.A Depression, unspecified; O13.4 Gestational [pregnancy-induced] hypertension without significant proteinuria, complicating childbirth; O99.344 Other mental disorders complicating childbirth; Z37.0 Single live birth; Z3A.38 38 weeks gestation of pregnancy; O32.8XX0 Maternal care for other malpresentation of fetus, not applicable or unspecified; F41.9 Anxiety disorder, unspecified